=== PATIENT | male | born 1980 ===

== ENCOUNTER 2020-10-09 21:17 | Emergency (ER) | payer OTHER, MEDICARE ==
[2020-10-09 21:32] VITALS: RESP 18; TEMP 98
[2020-10-09] MEDS ORDERED: SODIUM CHLORIDE 0.9% 1,000 ML IV STA (21:43)
--- NOTE | 2020-10-09 21:45 | ED ---
General Adult HPI - General Chief complaint: Seizure Stated complaint: Seizure Time Seen by Provider: 10/09/20 21:31 Source: patient, EMS Mode of arrival: EMS Limitations: no limitations - History of Present Illness Initial comments: Dictation was produced using App [employer] dictation software. please excuse any grammatical, word or spelling errors. This patient was cared for during a federal and state declared state of emergency secondary to Covid 19 Chief Complaint: 40-year-old male past medical history of seizure disorder, autism, cerebral palsy presents with generalized weakness and increased frequency of seizures History of Present Illness: Patient is a 40-year-old male who has past medical history of seizure disorder, autism cerebral palsy. Patient takes Lamictal on a regular basis for seizure control. The last 3-4 days she's been having increased weakness and increased frequency of seizures. Patient was at a residential where there is staff that also take care of him. States he takes limits of daily but does not know what his exact dosing is. Patient's primary by EMS. According to EMS who received report from residential staff and Jose he is been seemingly more weak than usual. Patient states that his legs feel weak. He has been taking his medications like he is supposed to. He has no pain complaints. Denies any shortness of breath. No respiratory symptoms. He believes that he has seizures of unclear whether these episodes were witnessed. He has been having symptoms of more recently were then he would not remember what exactly happened. She had several of these episodes over the last 4 days. The ROS documented in this emergency department record has been reviewed and confirmed by me. Those systems with pertinent positive or negative responses have been documented in the HPI. All other systems are other negative and/or noncontributory. PHYSICAL EXAM: General Impression: Alert and oriented x3, not in acute distress HEENT: Normocephalic atraumatic, extra-ocular movements intact, pupils equal and reactive to light bilaterally, mucous membranes moist. Cardiovascular: Heart regular rate and rhythm Chest: Able to complete full sentences, no retractions, no tachypnea Abdomen: abdomen soft, non-tender, non-distended, no organomegaly Musculoskeletal: Pulses present and equal in all extremities, no peripheral edema Motor: no focal deficits noted Neurological: CN II-XII grossly intact, no focal motor or sensory deficits noted Skin: Intact with no visualized rashes Psych: Normal affect and mood ED course: 40-year-old male with past medical history of seizure disorder, autism with cerebral palsy presents with worsening weakness and concern for increased frequency of seizures. Vital signs upon arrival shows heart rate of 121, rest of vital signs within acceptable limits. Laboratory evaluation obtained. CBC shows macrocytosis of 113.9. Rest of labs within acceptable limits. Metabolic panel is negative. Electrolytes are normal. Computed tomography scan of the brain shows no acute processes. Patient reevaluated at bedside at 11:05 PM with stable medical condition. Patient be administered intravenous fluids observed in emergency department and if no acute issues arise be discharge back to residential with follow-up to his neurologist Dr. Oates. EKG interpretation: Ventricular rate 112, sinus tachycardia, DC interval 112, QRS 94, QTC 633. No DC prolongation, no QTC prolongation, no ST or T-wave changes noted. Overall, this EKG is unremarkable - Related Data Allergies Allergy/AdvReac Type Severity Reaction Status Date / Time Penicillins Allergy Anaphylaxis Verified 10/09/20 21:32 Review of Systems ROS Statement: Those systems with pertinent positive or pertinent negative responses have been documented in the HPI. ROS Other: All systems not noted in ROS Statement are negative. Past Medical History Past Medical History: Seizure Disorder Additional Past Medical History / Comment(s): Cerebral palsy, autism History of Any Multi-Drug Resistant Organisms: None Reported Past Surgical History: No Surgical Hx Reported Past Psychological History: Anxiety Smoking Status: Never smoker Past Alcohol Use History: None Reported Past Drug Use History: None Reported General Exam Limitations: no limitations Course Vital Signs 10/09/20 10/09/20 10/10/20 21:27 23:00 00:38 Temperature 98.0 F Pulse Rate 121 H 114 H 103 H Respiratory 18 18 18 Rate Blood Pressure 147/87 147/97 O2 Sat by Pulse 100 100 Oximetry Medical Decision Making - Lab Data Result diagrams: 10/09/20 21:55 10/09/20 21:54 Lab Results 10/09/20 10/09/20 10/09/20 Range/Units 21:54 21:54 21:55 WBC 5.7 (3.8-10.6) k/uL RBC 3.90 L (4.30-5.90) m/uL Hgb 13.6 (13.0-17.5) gm/dL Hct 44.4 (39.0-53.0) % MCV 113.9 H (80.0-100.0) fL MCH 34.9 (25.0-35.0) pg MCHC 30.6 L (31.0-37.0) g/dL RDW 16.9 H (11.5-15.5) % Plt Count 268 (150-450) k/uL MPV 7.8 Neutrophils % 80 % Lymphocytes % 16 % Monocytes % 2 % Eosinophils % 1 % Basophils % 0 % Neutrophils # 4.5 (1.3-7.7) k/uL Lymphocytes # 0.9 L (1.0-4.8) k/uL Monocytes # 0.1 (0-1.0) k/uL Eosinophils # 0.1 (0-0.7) k/uL Basophils # 0.0 (0-0.2) k/uL Manual Slide Review Performed Anisocytosis Slight Anisocytosis (manual) Present Macrocytosis Marked A Target Cells Present Sodium 140 (137-145) mmol/L Potassium 4.0 (3.5-5.1) mmol/L Chloride 100 (98-107) mmol/L Carbon Dioxide 34 H (22-30) mmol/L Anion Gap 6 mmol/L BUN 9 (9-20) mg/dL Creatinine 0.92 (0.66-1.25) mg/dL Est GFR (CKD-EPI)AfAm >90 (>60 ml/min/1.73 sqM) Est GFR (CKD-EPI)NonAf >90 (>60 ml/min/1.73 sqM) Glucose 159 H (74-99) mg/dL Calcium 9.5 (8.4-10.2) mg/dL Magnesium 2.1 (1.6-2.3) mg/dL Influenza Type A (PCR) Not Detected (Not Detectd) Influenza Type B (PCR) Not Detected (Not Detectd) RSV (PCR) Not Detected (Not Detectd) SARS-CoV-2 (PCR) Not Detected (Not Detectd) Disposition Clinical Impression: Weakness Disposition: HOME SELF-CARE Instructions (If sedation given, give patient instructions): Recurrent Seizures in Adults (ED) Additional Instructions: Follow-up with neurologist and primary care physician for outpatient management of weakness and seizures Is patient prescribed a controlled substance at d/c from ED?: No Referrals: None,Stated [Primary Care Provider] - 1-2 days Time of Disposition: 07:08
[2020-10-09 22:30] LABS: African American GFR (CKD) >90 (>60 ml/min/1.73 sqM); Anion Gap 6 mmol/L; Blood Urea Nitrogen 9 mg/dL (9-20); Calcium 9.5 mg/dL (8.4-10.2); Carbon Dioxide 34 mmol/L (22-30); Chloride 100 mmol/L (98-107); Glucose 159 mg/dL (74-99); Magnesium 2.1 mg/dL (1.6-2.3); Non-African American GFR(CKD) >90 (>60 ml/min/1.73 sqM); Sodium 140 mmol/L (137-145)
[2020-10-09 22:32] LABS: Anisocytosis Slight; Basophils % (A) 0 %; Eosinophils # (A) 0.1 k/uL (0-0.7); Eosinophils % (A) 1 %; HCT 44.4 % (39.0-53.0); HGB 13.6 gm/dL (13.0-17.5); Lymphocytes # (A) 0.9 k/uL (1.0-4.8); Lymphocytes % (A) 16 %; MCH 34.9 pg (25.0-35.0); MCHC 30.6 g/dL (31.0-37.0); MCV 113.9 fL (80.0-100.0); Macrocytosis Marked; Mean Platelet Volume 7.8; Monocytes # (A) 0.1 k/uL (0-1.0); Monocytes % (A) 2 %; Neutrophils # (A) 4.5 k/uL (1.3-7.7); Neutrophils % (A) 80 %; Platelet Count 268 k/uL (150-450); RDW 16.9 % (11.5-15.5); WBC 5.7 k/uL (3.8-10.6)
--- NOTE | 2020-10-09 22:38 | CT ---
EXAMINATION TYPE: CT brain wo con DATE OF EXAM: 10/09/2020 COMPARISON: None HISTORY: Seizures, head trauma CT DLP: 1099.4 mGycm Automated exposure control for dose reduction was used. There is slight enlargement of the left lateral ventricle compared to the right. There is no mass eff ect nor midline shift. There is no sign of intracranial hemorrhage. The calvarium is intact. Skull ba se is intact. There is normal aeration of the mastoid sinuses. IMPRESSION: Asymmetric larger left lateral ventricle without significant atrophy. This could be developmental. No acute intracranial abnormality.
[2020-10-09 22:49] LABS: Anisocytosis (M) Present; Target Cells Present
[2020-10-10 00:39] VITALS: BP 147/97; PULSE 103
== END 2020-10-10 01:28 | disposition home or self-care (01) ==
LOC: EC 21:17
DX: R53.1 Weakness (principal); G40.909 Epilepsy, unspecified, not intractable, without status epilepticus
CPT/HCPCS: 36415; 70450; 80048; 83735; 85025; 87636; 93005; 96360; 99285

== ENCOUNTER 2021-07-21 16:15 | Emergency (ER) | payer MEDICARE, OTHER ==
[2021-07-21 16:24] VITALS: RESP 18; TEMP 98.4
[2021-07-21 17:17] LABS: Anisocytosis Marked; Basophils % (A) 1 %; Eosinophils # (A) 0.2 k/uL (0-0.7); Eosinophils % (A) 4 %; HCT 32.4 % (39.0-53.0); HGB 10.1 gm/dL (13.0-17.5); Hypochromasia Moderate; Lymphocytes # (A) 1.6 k/uL (1.0-4.8); Lymphocytes % (A) 35 %; MCH 30.1 pg (25.0-35.0); MCHC 31.2 g/dL (31.0-37.0); MCV 96.6 fL (80.0-100.0); Macrocytosis Moderate; Mean Platelet Volume 8.1; Microcytosis Slight; Monocytes % (A) 1 %; Neutrophils # (A) 2.7 k/uL (1.3-7.7); Neutrophils % (A) 58 %; Platelet Count 334 k/uL (150-450); RBC 3.35 m/uL (4.30-5.90); WBC 4.7 k/uL (3.8-10.6)
[2021-07-21 17:24] LABS: RDW 27.2 % (11.5-15.5)
[2021-07-21 17:28] LABS: ALT 68 U/L (4-49); AST 56 U/L (17-59); African American GFR (CKD) >90 (>60 ml/min/1.73 sqM); Albumin 3.7 g/dL (3.5-5.0); Alkaline Phosphatase 83 U/L (38-126); Anion Gap 7 mmol/L; Blood Urea Nitrogen 15 mg/dL (9-20); Calcium 8.5 mg/dL (8.4-10.2); Carbon Dioxide 28 mmol/L (22-30); Chloride 104 mmol/L (98-107); Glucose 118 mg/dL (74-99); Non-African American GFR(CKD) >90 (>60 ml/min/1.73 sqM); Potassium 3.9 mmol/L (3.5-5.1); Sodium 139 mmol/L (137-145); Total Bilirubin 0.5 mg/dL (0.2-1.3); Total Protein 6.6 g/dL (6.3-8.2)
[2021-07-21 17:34] LABS: Ovalocytes Present; Poikilocytosis (M) Present; Polychromasia Present
[2021-07-21] MEDS ORDERED: carBAMazepine 300 MG CPMP.12HR PO STA (17:49)
--- NOTE | 2021-07-21 18:20 | ED ---
General Adult HPI - General Chief complaint: Seizure Stated complaint: seizures Time Seen by Provider: 07/21/21 16:27 Source: patient, EMS Mode of arrival: EMS - History of Present Illness Initial comments: Patient is a 40-year-old male past medical history of cerebral palsy, seizure disorder presents emergency department after he had 2 seizures. Patient [facility] at a prison. He had an appointment with his neurologist earlier today. He had been taken off of his Lamictal, his last dose which was yesterday and was to be switched to carbamazepine today. Patient left the doctor's office and at his facility ended up having 2 seizures that only lasted a few seconds. He denies that he injured himself today however yesterday did sustain a fall with head injury. He denies any pain. No nausea or vomiting. No visual changes. No other alleviating, precipitating or modifying factors - Related Data Home Medications Medication Instructions Recorded Confirmed Albuterol Sulfate [Ventolin HFA] 1 - 2 puff INHALATION RT-QID PRN 07/21/21 07/21/21 Baclofen [Lioresal] 20 mg PO TID PRN 07/21/21 07/21/21 Dextroamphetamine/Amphetamine 30 mg PO DAILY 07/21/21 07/21/21 [Adderall Xr] Levothyroxine Sodium [Synthroid] 50 mcg PO DAILY 07/21/21 07/21/21 OXcarbazepine [Oxtellar Xr] 1,200 mg PO DAILY 07/21/21 07/21/21 Sertraline HCl [Zoloft] 150 mg PO DAILY 07/21/21 07/21/21 carBAMazepine [TEGretol XR] 200 mg PO BID 07/21/21 07/21/21 clonazePAM [KlonoPIN] 1 mg PO DAILY PRN 07/21/21 07/21/21 Allergies Allergy/AdvReac Type Severity Reaction Status Date / Time Penicillins Allergy Anaphylaxis Verified 07/21/21 19:23 Review of Systems ROS Statement: Those systems with pertinent positive or pertinent negative responses have been documented in the HPI. ROS Other: All systems not noted in ROS Statement are negative. Past Medical History Past Medical History: Seizure Disorder Additional Past Medical History / Comment(s): Cerebral palsy, autism History of Any Multi-Drug Resistant Organisms: None Reported Past Surgical History: No Surgical Hx Reported Past Psychological History: Anxiety, Depression Smoking Status: Never smoker Past Alcohol Use History: None Reported Past Drug Use History: None Reported General Exam General appearance: alert, in no apparent distress Head exam: Present: atraumatic Eye exam: Present: normal appearance, PERRL, EOMI. Absent: scleral icterus, conjunctival injection, periorbital swelling ENT exam: Present: normal exam, mucous membranes moist Neck exam: Present: normal inspection. Absent: tenderness, meningismus, lymphadenopathy Respiratory exam: Present: normal lung sounds bilaterally. Absent: respiratory distress, wheezes, rales, rhonchi, stridor Cardiovascular Exam: Present: regular rate, normal rhythm, normal heart sounds. Absent: systolic murmur, diastolic murmur, rubs, gallop, clicks GI/Abdominal exam: Present: soft, normal bowel sounds. Absent: distended, tenderness, guarding, rebound, rigid Extremities exam: Present: normal capillary refill, other (contractions upper extremities, muscle atrophy lower extremities). Absent: tenderness, pedal edema, joint swelling, calf tenderness Back exam: Present: normal inspection Neurological exam: Present: alert, oriented X3, CN II-XII intact Psychiatric exam: Present: normal affect, normal mood Skin exam: Present: warm, dry, intact, normal color. Absent: rash Course Vital Signs 07/21/21 07/21/21 16:19 18:31 Temperature 98.4 F Pulse Rate 100 101 H Respiratory 18 18 Rate Blood Pressure 149/102 125/92 O2 Sat by Pulse 96 98 Oximetry EKG Findings - EKG Comments: EKG Findings:: EKG demonstrates sinus rhythm with a rate of 98. NH interval 115. QRS 80. QTC of 397. No acute ST segment elevations or depressions concerning for ischemic changes Medical Decision Making - Medical Decision Making On arrival I did review the patient's paperwork from his doctor's office. He sees Dr. Eloy Dueñas - [phone]. Reports show that the patient is supposed to take up carbamazepine 200 mg twice a day. Patient reports that his pharmacy will not have the medication until tomorrow. Laboratory studies were conducted. Patient went for a CT of his brain because of his injury. Patient given a loading dose of carbamazepine 600 mg after I did speak with his neurologist. CT does demonstrate concerning signs for subluxation of C1 on C2. Because of this Dr. Legacy did recommend that I repeat his CT with the patient's head straight. This does continue to demonstrate a subluxation. Because of this radiology finding I did call and speak with Dr. Goodman paula who is the orthopedic spine on consult. Patient has no concerning clinical signs for neck injury. Patient is able to look in all directions without any pain. Patient is adamant that he does not have a neck injury. Dr. Starks's and feels that the patient's is stable for discharge if no pain on physical exam. He she'll be discharged back to his facility. Instructed to follow up with his neurologist for todays seizure activity. Return for any worsening symptoms - Lab Data Result diagrams: 07/21/21 17:15 07/21/21 17:15 Lab Results 07/21/21 07/21/21 Range/Units 17:15 17:15 WBC 4.7 (3.8-10.6) k/uL RBC 3.35 L (4.30-5.90) m/uL Hgb 10.1 L (13.0-17.5) gm/dL Hct 32.4 L (39.0-53.0) % MCV 96.6 (80.0-100.0) fL MCH 30.1 (25.0-35.0) pg MCHC 31.2 (31.0-37.0) g/dL RDW 27.2 H (11.5-15.5) % Plt Count 334 (150-450) k/uL MPV 8.1 Neutrophils % 58 % Lymphocytes % 35 % Monocytes % 1 % Eosinophils % 4 % Basophils % 1 % Neutrophils # 2.7 (1.3-7.7) k/uL Lymphocytes # 1.6 (1.0-4.8) k/uL Monocytes # 0.0 (0-1.0) k/uL Eosinophils # 0.2 (0-0.7) k/uL Basophils # 0.0 (0-0.2) k/uL Polychromasia Present Hypochromasia Moderate Poikilocytosis (manual Present Anisocytosis Marked Microcytosis Slight Macrocytosis Moderate Ovalocytes Present Sodium 139 (137-145) mmol/L Potassium 3.9 (3.5-5.1) mmol/L Chloride 104 (98-107) mmol/L Carbon Dioxide 28 (22-30) mmol/L Anion Gap 7 mmol/L BUN 15 (9-20) mg/dL Creatinine 0.86 (0.66-1.25) mg/dL Est GFR (CKD-EPI)AfAm >90 (>60 ml/min/1.73 sqM) Est GFR (CKD-EPI)NonAf >90 (>60 ml/min/1.73 sqM) Glucose 118 H (74-99) mg/dL Calcium 8.5 (8.4-10.2) mg/dL Magnesium 2.0 (1.6-2.3) mg/dL Total Bilirubin 0.5 (0.2-1.3) mg/dL AST 56 (17-59) U/L ALT 68 H (4-49) U/L Alkaline Phosphatase 83 (38-126) U/L Total Protein 6.6 (6.3-8.2) g/dL Albumin 3.7 (3.5-5.0) g/dL Disposition Clinical Impression: Breakthrough seizure Disposition: HOME SELF-CARE Condition: Stable Instructions (If sedation given, give patient instructions): Seizure/Epilepsy Discharge Instructions & Follow-Up Additional Instructions: Start taking the carbamazepine tomorrow as directed. Follow up with your neurologist. I recommend they add on an MRI of your cervical spine to your brain MRI. Return for any new or worsening symptoms. Is patient prescribed a controlled substance at d/c from ED?: No Referrals: Bernardino Guillermo MD [Primary Care Provider] - 1-2 days Time of Disposition: 20:24
[2021-07-21 18:33] VITALS: BP 125/92; PULSE 101
--- NOTE | 2021-07-21 18:48 | CT ---
EXAMINATION TYPE: CT brain cspine wo con CT DLP: 1267.7 mGycm, Automated exposure control for dose reduction was used. DATE OF EXAM: 07/21/2021 6:22 PM COMPARISON: None.. CLINICAL INDICATION:Male, 40 years old with history of seizure, fall head injury; Prior head scan, se izure, fall, head injury TECHNIQUE: Brain: Multiple axial CT images of the brain were obtained without IV contrast. Cspine: Axial CT images from the skull base to the inferior aspect of T2 we obtained without intraven ous contrast. Coronal and sagittal reformatted images were also reviewed. FINDINGS: Brain: Extra-axial spaces: No abnormal extra-axial fluid collections. Ventricular system: Within normal limits Cerebral parenchyma: No acute intraparenchymal hemorrhage or mass effect. The cool-white junction is well differentiated. Cerebellum: Unremarkable. Mass effect: No evidence of midline shift. Intracranial vasculature: unremarkable Soft tissues: Normal. Calvarium/osseous structures: No depressed skull fracture. Paranasal sinuses and mastoid air cells: Clear. Visualized orbits: Orbital contents are intact. Cervical spine: Fracture: None. Osseous structures: Multilevel degenerative disc disease changes with endplate spurring and disc oste ophyte complex's. Vertebral alignment: Within normal limits. Spinal canal/Neural Foramina: Patient is rotated, there appears to be anterior subluxation of left C1 facet on C2. Mild narrowing of the spinous C1 secondary to the posterior arch displaced anteriorly. No evidence of significant neural foramina narrowing. Neck soft tissues: Prevertebral soft tissues are within normal limits. Other: The airway is patent. The lung apices are clear. Findings communicated to Dr. Anu Mitchell DO on 07/21/2021 6:[address] Leo Chacon. IMPRESSION: 1. No acute intracranial process. 2. Anterior subluxed C1 left facet on C2 and anterior posterior archof C1 which results in mild spina l canal stenosis. This could be secondary to patient position, consider repeat CT C-spine with the he ad looking straight a head. 3. Mild multilevel degenerative disc disease.
--- NOTE | 2021-07-21 19:46 | CT ---
EXAMINATION TYPE: CT cervical spine wo con CT DLP: 289.1 mGycm, Automated exposure control for dose reduction was used. DATE OF EXAM: 07/21/2021 7:18 PM COMPARISON: CT C-spine same day. CLINICAL INDICATION:Male, 40 years old with history of abn neck ct, malposition vs other, Abn nect CT , malposition vs other TECHNIQUE: Axial CT images from the skull base to the inferior aspect of T2 we obtained without intra venous contrast. Coronal and sagittal reformatted images were also reviewed. FINDINGS: Fracture: None. Osseous structures: Previous findings are confirmed, there is anterior subluxation of the C1 facets o n C2, left greater than right. This results in the posterior arch anteriorly displaced with mild spin al canal stenosis. There is gapping of the atlantodental interval measuring 5 mm. Vertebral alignment: Within normal limits. Spinal canal/Neural Foramina: No evidence of significant spinal canal narrowing. No evidence of signi ficant neural foramina narrowing. Neck soft tissues: Prevertebral soft tissues are within normal limits. Other: The airway is patent. The lung apices are clear. IMPRESSION: 1. Subluxed C1 lateral facets on C2 is confirmed, left greater then right. Associated increased atlan todental interval resulting in mild spinal canal stenosis. 2. No evidence of cervical spine fracture.
== END 2021-07-21 21:51 | disposition home or self-care (01) ==
LOC: EC 16:15
DX: R56.9 Unspecified convulsions (principal); Z88.0 Allergy status to penicillin
CPT/HCPCS: 36415; 70450; 72125; 80053; 83735; 85025; 93005; 99285

== ENCOUNTER 2021-10-04 15:08 | Observation (INO) | payer MEDICARE, OTHER ==
[2021-10-04] MEDS ORDERED: ACETAMINOPHEN TAB 325 MG TAB PO STA (15:31)
--- NOTE | 2021-10-04 15:35 | ED ---
Seizure HPI - General Chief Complaint: Seizure Stated Complaint: Seizure Time Seen by Provider: 10/04/21 15:19 Source: EMS Mode of arrival: EMS Limitations: physical limitation - History of Present Illness Initial Comments: Patient is a 41-year-old male with past medical history of seizure disorder, autism disorder, cerebral palsy who presents to the emergency department for evaluation of seizure. Patient states he had a seizure at his living facility today around 2 PM. He states the seizure was unwitnessed therefore unaware how long it lasted. Patient states his last memory before the seizure was lying on the couch and states he was found on the couch after the seizure. He is adamant that he did not fall off the couch. Patient denies blurry vision, double vision, nausea, and vomiting since the seizure. Patient currently endorses a headache. He denies chest pain shortness of breath. He has no other concerns at this time. - Related Data Home Medications Medication Instructions Recorded Confirmed Albuterol Sulfate [Ventolin HFA] 1 - 2 puff INHALATION RT-QID PRN 07/21/21 07/21/21 Baclofen [Lioresal] 20 mg PO TID PRN 07/21/21 07/21/21 Dextroamphetamine/Amphetamine 30 mg PO DAILY 07/21/21 07/21/21 [Adderall Xr] Levothyroxine Sodium [Synthroid] 50 mcg PO DAILY 07/21/21 07/21/21 OXcarbazepine [Oxtellar Xr] 1,200 mg PO DAILY 07/21/21 07/21/21 Sertraline HCl [Zoloft] 150 mg PO DAILY 07/21/21 07/21/21 carBAMazepine [TEGretol XR] 200 mg PO BID 07/21/21 07/21/21 clonazePAM [KlonoPIN] 1 mg PO DAILY PRN 07/21/21 07/21/21 Allergies Allergy/AdvReac Type Severity Reaction Status Date / Time Penicillins Allergy Anaphylaxis Verified 07/21/21 19:23 Review of Systems ROS Statement: Those systems with pertinent positive or pertinent negative responses have been documented in the HPI. ROS Other: All systems not noted in ROS Statement are negative. Past Medical History Past Medical History: Seizure Disorder Additional Past Medical History / Comment(s): Cerebral palsy, autism History of Any Multi-Drug Resistant Organisms: None Reported Past Surgical History: No Surgical Hx Reported Past Psychological History: Anxiety, Depression Smoking Status: Never smoker Past Alcohol Use History: None Reported Past Drug Use History: None Reported General Exam Limitations: physical limitation General appearance: alert, in no apparent distress Head exam: Present: atraumatic, normocephalic, normal inspection Eye exam: Present: normal appearance, PERRL, EOMI, other (Patient unable to open his right eyelids on his own. He states this typically happens post ictal state). Absent: scleral icterus, conjunctival injection, periorbital swelling ENT exam: Present: normal oropharynx, other Neck exam: Present: normal inspection, full ROM. Absent: tenderness Respiratory exam: Present: normal lung sounds bilaterally. Absent: respiratory distress, wheezes, rales, rhonchi, stridor Cardiovascular Exam: Present: regular rate, normal rhythm, normal heart sounds. Absent: systolic murmur, diastolic murmur, rubs, gallop, clicks GI/Abdominal exam: Present: soft, distended, normal bowel sounds. Absent: tenderness, guarding, rebound, rigid Neurological exam: Present: alert, CN II-XII intact. Absent: oriented X3 (Oriented 1) Psychiatric exam: Present: normal affect, normal mood Skin exam: Present: warm, dry, intact, normal color. Absent: rash Course Vital Signs 10/04/21 10/04/21 15:12 18:23 Temperature 97.9 F 98.5 F Pulse Rate 84 91 Respiratory 18 24 Rate Blood Pressure 129/90 117/70 O2 Sat by Pulse 99 99 Oximetry Medical Decision Making - Medical Decision Making This is a 41-year-old male who presents for evaluation of seizure. Thorough history and examination were performed. Patient is hemodynamically stable. Patient is alert and oriented 1 but does answer my questions and follows commands appropriately. Unsure if this is post ictal state or baseline. PERRL however patient is unable to open his right eyelid on his own. He states this typically happens in his post ictal state. The fall was unwitnessed. Patient was found on the couch. It is uncertain if patient experiences one of multiple seizures. Patient endorses a headache. No visual symptoms, nausea, or vomiting. The abdomen is moderately distended although patient denies abdominal pain. No tenderness. He states his last bowel movement was today which was normal, nonbloody. Laboratory studies were obtained. Patient has normocytic normochromic anemia with hemoglobin at 10.1, consistent with his last visit. Tegretol is in therapeutic range. On reevaluation patient is A&O x 1. He states he is very tired. He denies abdominal pain however KUB x-ray reveals dilated loops of gas-filled bowel in the mid abdomen and could be enlarged cecum. A developing cecal or sigmoid volvulus is possible. Because patient is a questionable historian acute abdominal process cannot be ruled out. CT of the abdomen and pelvis with contrast was obtained which showed large bowel ileus with possible rectal stenosis or stricture. Mechanical bowel obstruction cannot be excluded. I did perform a rectal sweep and no palpable strictures or narrowing was noted. Case discussed with Dr. Hernadez. Patient will be admitted to his service for further evaluation and management. Results discussed with patient who verbalizes understanding and agreement with this plan. Dr. Harrison is my attending. - Lab Data Result diagrams: 10/04/21 16:07 10/04/21 16:07 Lab Results 10/04/21 10/04/21 Range/Units 16:07 16:07 WBC 6.1 (3.8-10.6) k/uL RBC 3.85 L (4.30-5.90) m/uL Hgb 10.1 L (13.0-17.5) gm/dL Hct 33.3 L (39.0-53.0) % MCV 86.5 (80.0-100.0) fL MCH 26.1 (25.0-35.0) pg MCHC 30.2 L (31.0-37.0) g/dL RDW 23.2 H (11.5-15.5) % Plt Count 363 (150-450) k/uL MPV 9.2 Neutrophils % 80 % Lymphocytes % 11 % Monocytes % 5 % Eosinophils % 2 % Basophils % 0 % Neutrophils # 4.9 (1.3-7.7) k/uL Lymphocytes # 0.7 L (1.0-4.8) k/uL Monocytes # 0.3 (0-1.0) k/uL Eosinophils # 0.1 (0-0.7) k/uL Basophils # 0.0 (0-0.2) k/uL Hypochromasia Marked Poikilocytosis Slight Anisocytosis Moderate Microcytosis Slight Sodium 135 L (137-145) mmol/L Potassium 3.8 (3.5-5.1) mmol/L Chloride 106 (98-107) mmol/L Carbon Dioxide 26 (22-30) mmol/L Anion Gap 3 mmol/L BUN 16 (9-20) mg/dL Creatinine 0.83 (0.66-1.25) mg/dL Est GFR (CKD-EPI)AfAm >90 (>60 ml/min/1.73 sqM) Est GFR (CKD-EPI)NonAf >90 (>60 ml/min/1.73 sqM) Glucose 110 H (74-99) mg/dL Calcium 8.2 L (8.4-10.2) mg/dL Magnesium 1.9 (1.6-2.3) mg/dL Total Bilirubin 0.3 (0.2-1.3) mg/dL AST 45 (17-59) U/L ALT 57 H (4-49) U/L Alkaline Phosphatase 113 (38-126) U/L Total Protein 7.1 (6.3-8.2) g/dL Albumin 4.1 (3.5-5.0) g/dL Carbamazepine 9.1 ug/mL - EKG Data EKG Comments: EKG taken at 16:21 Sinus rhythm, voltage criteria for LVH Ventricular rate 86 Purulent 138 QRS duration 76 QTC 409 Disposition Clinical Impression: Ileus, Abdominal distention, Seizure Disposition: ADMITTED IP TO THIS [facility] Condition: Fair Referrals: Bernardino Guillermo MD [Primary Care Provider] - 1-2 days Decision Time: 19:18
[2021-10-04 16:24] LABS: Anisocytosis Moderate; Basophils % (A) 0 %; Eosinophils # (A) 0.1 k/uL (0-0.7); Eosinophils % (A) 2 %; HCT 33.3 % (39.0-53.0); HGB 10.1 gm/dL (13.0-17.5); Hypochromasia Marked; Lymphocytes # (A) 0.7 k/uL (1.0-4.8); Lymphocytes % (A) 11 %; MCH 26.1 pg (25.0-35.0); MCHC 30.2 g/dL (31.0-37.0); MCV 86.5 fL (80.0-100.0); Mean Platelet Volume 9.2; Microcytosis Slight; Monocytes # (A) 0.3 k/uL (0-1.0); Monocytes % (A) 5 %; Neutrophils # (A) 4.9 k/uL (1.3-7.7); Neutrophils % (A) 80 %; Platelet Count 363 k/uL (150-450); Poikilocytosis Slight; RBC 3.85 m/uL (4.30-5.90); RDW 23.2 % (11.5-15.5); WBC 6.1 k/uL (3.8-10.6)
[2021-10-04 16:35] LABS: ALT 57 U/L (4-49); AST 45 U/L (17-59); African American GFR (CKD) >90 (>60 ml/min/1.73 sqM); Albumin 4.1 g/dL (3.5-5.0); Alkaline Phosphatase 113 U/L (38-126); Anion Gap 3 mmol/L; Blood Urea Nitrogen 16 mg/dL (9-20); Calcium 8.2 mg/dL (8.4-10.2); Carbamazepine (Tegretol) 9.1 ug/mL; Carbon Dioxide 26 mmol/L (22-30); Chloride 106 mmol/L (98-107); Glucose 110 mg/dL (74-99); Magnesium 1.9 mg/dL (1.6-2.3); Non-African American GFR(CKD) >90 (>60 ml/min/1.73 sqM); Potassium 3.8 mmol/L (3.5-5.1); Sodium 135 mmol/L (137-145); Total Bilirubin 0.3 mg/dL (0.2-1.3); Total Protein 7.1 g/dL (6.3-8.2)
--- NOTE | 2021-10-04 17:13 | XR ---
EXAMINATION TYPE: XR KUB DATE OF EXAM: 10/04/2021 COMPARISON: NONE HISTORY: Abdominal pain TECHNIQUE: Single view FINDINGS: There is some gaseous distention of the large bowel. No free air. Lung bases are clear. The re are no pathologic calcifications over the kidneys. IMPRESSION: There is dilated loop of gas-filled bowel in the midabdomen and could be enlarged cecum. A developing cecal or sigmoid volvulus is possible. No free air.
--- NOTE | 2021-10-04 18:12 | CT ---
EXAMINATION TYPE: CT abdomen pelvis w con DATE OF EXAM: 10/04/2021 COMPARISON: None HISTORY: abdominal pain and distention CT DLP: 526.8 mGycm Automated exposure control for dose reduction was used. CONTRAST: Performed with IV Contrast, patient injected with 100 mL of Isovue 300. Images obtained from the diaphragm to the floor the pelvis with IV contrast. The lung bases are clear of consolidation. There is minimal subsegmental atelectasis. Heart size is n ormal. No pericardial effusion. Liver spleen pancreas appear intact. The bile ducts are not dilated. There is no adrenal mass. Kidneys show satisfactory contrast opacification. There is no hydronephrosi s. There are multiple dilated loops of large bowel. There is dilated gas and fluid-filled large bowel do wn to the rectum. There is also some gaseous distention and mild dilation of the small bowel that marcell sures up to 3.2 cm. No free air. No ascites. I see no intestinal wall thickening. The bony structures are intact. IMPRESSION: Moderately dilated air and fluid-filled large bowel down to the rectum consistent with ileus and diar wolf. Rectal stenosis or stricture is possible. Mechanical bowel obstruction not excluded. Follow-up recommended. There is mild distention also of the distal small bowel probably secondary to the dilate d large bowel.
[2021-10-04] MEDS ORDERED: MAGNESIUM HYDROXIDE 2,400 MG/10 ML CUP PO STA (23:28)
--- NOTE | 2021-10-04 23:58 | P.HPIM ---
History of Present Illness H&P Date: 10/04/21 Patient is a 41-year-old male with a PMH of cerebral palsy, seizure disorder, autism spectrum disorder presented to the emergency room after breakthrough seizure. The patient reports that he was in his usual state of health until about one to 2 PM this afternoon when he believes he had a seizure. He denies any prodromal symptoms and states that he was laying on the couch and subsequently woke up on the couch, unwitnessed. He denies suffering any trauma and reports feeling back to his baseline at the time of interview. The patient reports that he often has seizures, and had been evaluated in the emergency room 2 to 3 months ago also for a seizure. Patient also reports that he has a histo ry of multiple abdominal surgeries as a child, and suffers with chronic constipation. Reports not having a bowel movement over the past 2-3 days. Denied experiencing any abdominal pain. Further denied chest discomfort, shortness of breath, fever, chills, cough, nausea, vomiting. CT abdomen and pelvis in the emergency room revealed dilated large bowel, with obstruction versus stricture not excluded. EKG revealed sinus rhythm at 86 bpm with LVH. Laboratory evaluation was remarkable for hemoglobin of 10.1 (at baseline). Review of systems: Pertinent positives and negatives as discussed in HPI, a complete review of systems was performed and all other systems are negative. Physical examination: General: non toxic, no distress, appears at stated age, normal weight Derm: no unusual rashes/lesions no unusual ecchymoses, warm, dry Head: atraumatic, normocephalic, symmetric Eyes: EOMI, no lid lag, anicteric sclera, pupils equal round reactive to light ENT: Nose and ears atraumatic, no thrush, no pharyngeal erythema Neck: No thyromegaly, no cervical lymphadenopathy, trachea midline, supple Mouth: no lip lesion, mucus membranes moist Cardiovascular: S1S2 reg, no murmur, positive posterior tibial pulse bilateral, no edema, capillary refill less than 2 seconds Lungs: CTA bilateral, no rhonchi, no rales , no accessory muscle use Abdominal: mildly distended, non-tender, multiple post surgical scars noted, no guarding, no appreciable organomegaly, normal bowel sounds Ext: no gross muscle atrophy, muscle strength 5 out of 5 in all 4 extremities grossly, R wrist contracture noted Neuro: CN II-XI grossly intact, light touch intact all 4 extremities, finger to nose within normal limits, Psych: Alert, oriented, appropriate affect Assessment/plan Breakthrough seizure -Carbamazepine levels therapeutic -Patient reports compliance with his antiepileptics at home -Neurology consulted -Seizure precautions Abdominal distention with abnormal computed tomography scan -Suspect symptoms may be due to chronic intermittent constipation -Patient denying abdominal discomfort at this time -Surgery consult -NPO for now DVT prophylaxis -Heparin subq The patient is admitted with an anticipated greater than 2 midnight stay for evaluation of seizure CODE STATUS: Full Code Discussed with: Patient Anticipated discharge date: 2-[address]: Home Past Medical History Past Medical History: Seizure Disorder Additional Past Medical History / Comment(s): Cerebral palsy, autism History of Any Multi-Drug Resistant Organisms: None Reported Past Surgical History: No Surgical Hx Reported Past Psychological History: Anxiety, Depression Smoking Status: Never smoker Past Alcohol Use History: None Reported Past Drug Use History: None Reported Medications and Allergies Home Medications Medication Instructions Recorded Confirmed Type Albuterol Sulfate [Ventolin HFA] 1 - 2 puff INHALATION RT-QID PRN 07/21/21 07/21/21 History Baclofen [Lioresal] 20 mg PO TID PRN 07/21/21 07/21/21 History Dextroamphetamine/Amphetamine 30 mg PO DAILY 07/21/21 07/21/21 History [Adderall Xr] Levothyroxine Sodium [Synthroid] 50 mcg PO DAILY 07/21/21 07/21/21 History OXcarbazepine [Oxtellar Xr] 1,200 mg PO DAILY 07/21/21 07/21/21 History Sertraline HCl [Zoloft] 150 mg PO DAILY 07/21/21 07/21/21 History carBAMazepine [TEGretol XR] 200 mg PO BID 07/21/21 07/21/21 History clonazePAM [KlonoPIN] 1 mg PO DAILY PRN 07/21/21 07/21/21 History Allergies Allergy/AdvReac Type Severity Reaction Status Date / Time Penicillins Allergy Anaphylaxis Verified 10/04/21 19:22 Physical Exam Vitals: Vital Signs Temp Pulse Resp BP Pulse Ox 10/04/21 22:29 75 16 109/68 100 10/04/21 20:00 74 18 114/62 100 10/04/21 18:23 98.5 F 91 24 117/70 99 10/04/21 15:12 97.9 F 84 18 129/90 99 Intake and Output 10/04/21 10/04/21 10/05/21 14:59 22:59 06:59 Other: Weight 63.503 kg Results CBC & Chem 7: 10/04/21 16:07 10/04/21 16:07 Labs: Abnormal Lab Results - Last 24 Hours (Table) 10/04/21 10/04/21 Range/Units 16:07 16:07 RBC 3.85 L (4.30-5.90) m/uL Hgb 10.1 L (13.0-17.5) gm/dL Hct 33.3 L (39.0-53.0) % MCHC 30.2 L (31.0-37.0) g/dL RDW 23.2 H (11.5-15.5) % Lymphocytes # 0.7 L (1.0-4.8) k/uL Sodium 135 L (137-145) mmol/L Glucose 110 H (74-99) mg/dL Calcium 8.2 L (8.4-10.2) mg/dL ALT 57 H (4-49) U/L
[2021-10-05] MEDS: HEPARIN SODIUM,PORCINE/PF 5,000 UNIT/0.5 ML SYRINGE SQ SCH ×3 (02:42→15:16)
[2021-10-05] MEDS ORDERED: LORazepam 2 MG/ML INJ IV PRN (08:21)
--- NOTE | 2021-10-05 08:30 | CT ---
EXAMINATION TYPE: CT brain cspine wo con DATE OF EXAM: 10/05/2021 COMPARISON: CT brain August 09, 2020. CT cervical spine July 21, 2021 HISTORY: seizure and subluxation cervical on prior CT DLP: 1323.1 mGycm. Automated Exposure Control for Dose Reduction was Utilized. TECHNIQUE: CT scan of the head and cervical spine are performed without contrast. FINDINGS: There is no acute intracranial hemorrhage, mass effect, or midline shift identified. The ventricles and sulci are within normal limits in size. Asymmetry to the ventricles is unchanged from prior studies. The globes are intact and the visualized sinuses are clear. Cervical spine is visualized in its entirety from C1 through upper thoracic levels and redemonstrates straightened alignment with grade 1 retrolisthesis C3 on C4, C4 on C5, C5 on C6, and C6 on C7 redemo nstrated. No acute fracture or dislocation. Posterior C1 vertebra indenting posterior spinal canal i s unchanged from prior. Prevertebral soft tissue appears within normal limits. The C1-C2 articulatio n is within normal limits on the coronal images. Vertebral body heights are maintained. Moderate spu rring and disc space narrowing C3-C4 through the C6-C7 levels is redemonstrated. Posterior spur disc complexes efface the anterior thecal sac at these levels on sagittal and axial images similar to prio r. Thyroid gland remains within normal limits. Lung apices show no pneumothorax. IMPRESSION: 1. There is no acute fracture or dislocation evident in the cervical spine. 2. No acute intracranial hemorrhage or midline shift is seen. No significant change from prior studies.
[2021-10-05] MEDS: OXcarbazepine 300 MG TAB PO SCH ×2 (09:50→21:12)
--- NOTE | 2021-10-05 10:37 | P.CNNES ---
History of Present Illness Consult date: 10/05/21 Requesting physician: Kiet Hernadez Reason for Consult: breakthrough seizure History of Present Illness: This is a 41-year-old gentleman with history of cerebral palsy, seizure, autism Spectrum who presented to the emergency department on 10/04/2021 for breakthrough seizure. Seems that the patient was in his usual state yesterday then he felt he had a seizure. He stated that the he didn't have any warning signs prior to the seizure episode and the seizure was a unwitnessed. He denies any trauma to the head and upon present in the hospital he was at baseline. Patient had a hard time describing the seizure but did acknowledge he had urinary incontinence. Denies tongue bite. He lives in an [facility]. He feels he seizures has been more frequent recently but could not tell he how often. Patient is on carbamazepine 200 mg 1 tablet twice a day, oxteller 1200 mg daily, baclofen 20 mg 1 tablet 3 times a day when necessary, Adderall 30 mg daily. He does follow-up with Neurologist over at [facility]. Seems the patient was evaluated in our emergency about 2-3 month ago for seizu re. Patient has chronic constipation. Of note patient stated he has history of seizures since child. He has tried Keppra but stated was allergic to it. Tried Lamictal in past but has side- effects to it but could not tell what. Some of the workup in the hospital consisted of: Initial Vital signs is a blood pressure of 129/90, heart rate of 84, respiratory of 18, temperature of 97.9 Fahrenheit oral pulse ox of 99% room air Initial white blood cell is 6.1 thousand which is within normal limits. Sodium is 135, calcium is 8.2, serum glucose 110 ALT of 57 otherwise rest of Chem-7 pounds unremarkable Carbamazepine level was 9.1 which is considered therapeutic level. Patient had CT of the abdomen which is reported as mildly dilated air and fluid filled large bowel down to the rectum consistent with ileus and diarrhea. Rectal stenosis or stricture is possible. Mechanical bowel obstruction e xcluded. Review of Systems Review of system: The 12 point system was reviewed and apparent positive and negative per HPI. Past Medical History Past Medical History: Seizure Disorder Additional Past Medical History / Comment(s): Cerebral palsy, autism History of Any Multi-Drug Resistant Organisms: None Reported Past Surgical History: No Surgical Hx Reported Past Psychological History: Anxiety, Depression Smoking Status: Never smoker Past Alcohol Use History: None Reported Past Drug Use History: None Reported - Past Family History Father Additional Family Medical History / Comment(s): Father is . He had parkinson's. Mother Additional Family Medical History / Comment(s): Mother is . She had ALS. Medications and Allergies Home Medications Medication Instructions Recorded Confirmed Type Albuterol Sulfate [Ventolin HFA] 2 puff INHALATION RT-Q4H PRN 07/21/21 10/05/21 History Baclofen [Lioresal] 20 mg PO TID 07/21/21 10/05/21 History Levothyroxine Sodium [Synthroid] 50 mcg PO DAILY 07/21/21 10/05/21 History OXcarbazepine [Oxtellar Xr] 1,200 mg PO DAILY 07/21/21 10/05/21 History Sertraline HCl [Zoloft] 150 mg PO DAILY 07/21/21 10/05/21 History clonazePAM [KlonoPIN] 1 mg PO DAILY 07/21/21 10/05/21 History Docusate [Colace] 100 mg PO BID PRN 10/05/21 10/05/21 History Equetro 300mg 300 mg PO BID 10/05/21 10/05/21 History Meclizine [Antivert] 25 mg PO Q8H PRN 10/05/21 10/05/21 History Omeprazole 20 mg PO BID PRN 10/05/21 10/05/21 History Ondansetron [Zofran] 4 mg PO Q8H PRN 10/05/21 10/05/21 History Polyethylene Glycol 3350 [Miralax] 17 gm PO DAILY PRN 10/05/21 10/05/21 History Allergies Allergy/AdvReac Type Severity Reaction Status Date / Time Penicillins Allergy Anaphylaxis Verified 10/05/21 09:18 Physical Examination - Vital Signs Vital Signs: Vital Signs Temp Pulse Resp BP Pulse Ox 10/05/21 06:24 81 16 120/74 98 10/05/21 00:57 98.0 F 83 16 130/78 99 10/04/21 22:29 75 16 109/68 100 10/04/21 20:00 74 18 114/62 100 10/04/21 18:23 98.5 F 91 24 117/70 99 10/04/21 15:12 97.9 F 84 18 129/90 99 Intake and Output 10/04/21 10/05/21 10/05/21 22:59 06:59 14:59 Other: Weight 63.503 kg GENERAL: The patient is lying in bed and is not in acute distress. CHEST: The heart rate is regular rate rhythm. No murmurs to auscultation. LUNG: Clear to auscultation bilaterally no wheezing noted throughout. Not labored breathing. ABDOMEN/GI: Bowel sounds present in all 4 quadrants. No tenderness to palpation throughout. NEUROLOGICAL: Higher mental function: The patient is awake, alert, oriented to self, place and time. Patient is following commands. No aphasia and no neglect. Cranial nerves: The pupils are round, equal and reactive to light and accommodation. Visual russell are full to confrontation throughout. Extraocular movement is intact no nystagmus is noted. Facial sensation is normal to touch throughout. The facial strength is normal throughout. Hearing is normal bilaterally to hand rub. Tongue is midline and moved [id number] without any difficulty. No dysarthria is noted. No tongue bite. Shoulder shrug is normal bilaterally. Motor: Gait is deferred. The strength is 5 over 5 throughout left side while right is has weakness with increase tone (worse over upper than lower and per patient old). Has spasticity over the right wrist. Has atrophy over the entire right side. Cerebellum: Normal finger to nose. Sensation: Sensation is normal to touch throughout. Reflexes (right/left): Bilateral lowers are 3+. 2+ throughout. Plantars is upgoing over the right and mute left. Results - Laboratory Findings CBC and BMP: 10/04/21 16:07 10/04/21 16:07 Abnormal Lab Findings: Abnormal Labs 10/04/21 10/04/21 16:07 16:07 RBC 3.85 L Hgb 10.1 L Hct 33.3 L MCHC 30.2 L RDW 23.2 H Lymphocytes # 0.7 L Sodium 135 L Glucose 110 H Calcium 8.2 L ALT 57 H Assessment and Plan Assessment: Breakthrough seizure (patient had a possible seizure activity at home) and states his seizure has been more frequent. Possible bowel obstruction History of epilepsy since childhood Cerebral palsy with residual weakness and spasticity over right (mostly right upper >lower) History Autism spectrum Plan: Restarted his home antiepilepitic drugs carbamazepine 200 mg 1 tablet twice a day, oxteller 1200 mg daily. Since the patient has been having more frequent seizures, I started him on Vimpat 50mg 1 tab bid. I ordered a CT of the head as well as cervical spine. 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 Ordered Ativan 1 mg IV every 4 hours as needed for seizures Every 4 hours neuro checks On seizure precaution and seizure pads General surgery team was consulted for bowel obstruction We'll defer the rest of medical management to the primary team Upon discharge recommend the patient follow-up with his neurologist (follows-up with someone at [place]) as an outpatient within 1-2 weeks. The plan is discussed with the patient's nurse. Thank you consultation. Tyler Azar M.D. Neuro-hospitalist Time with Patient: Greater than 30
[2021-10-05] MEDS: LACOSAMIDE 50 MG TABLET PO SCH ×2 (11:02→21:12)
--- NOTE | 2021-10-05 13:21 | P.GSCN ---
History of Present Illness Consult date: 10/05/21 History of present illness: CHIEF COMPLAINT: Seizure HISTORY OF PRESENT ILLNESS: This is a 41-year-old male with a known history of seizure disorder, autism and cerebral palsy. He came into the emergency room for evaluation due to a breakthrough seizure. Patient is followed by neurology and his seizure medications have been adjusted. Patient did have a computed to mography scan of the abdomen completed in the ER due to abdominal distention. CAT scan results showed moderately dilated air and fluid-filled large bowel down to the rectum consistent with ileus and diarrhea. Rectal stenosis or stricture is possible. Mechanical bowel obstruction is not excluded. There is mild distention also on the distal small bowel probably secondary to the dilated large bowel. Since patient has been in the ER he did have 2 liquidy bowel movements plus flatus. He denies any abdominal pain. He did receive milk of magnesia in the ER. Patient reports having intestinal surgeries with J-pouch completed during his childhood. Patient denies any fevers chills or sweats. P atient reports that he is feeling hungry and would like to be started on diet. PAST MEDICAL HISTORY: Seizure disorder, autism and cerebral palsy PAST SURGICAL HISTORY: As stated above MEDICATIONS: See list. ALLERGIES: See list. SOCIAL HISTORY: No illicit drug use. REVIEW OF SYSTEMS: CONSTITUTIONAL: Denies fever or chills. HEENT: Denies blurred vision, vision changes, or eye pain. Denies hemoptysis CARDIOVASCULAR: Denies chest pain or pressure. RESPIRATORY: No shortness of breath. GASTROINTESTINAL: See HPI for pertinent findings HEMATOLOGIC: Denies bleeding disorders. GENITOURINARY: Denies any blood in urine or increased urinary frequency. SKIN: Denies pruitis. Denies rash. PHYSICAL EXAM: VITAL SIGNS: Reviewed GENERAL: Well-developed in no acute distress. HEENT: No sclera icterus. Extraocular movements grossly intact. Moist buccal mucosa. Head is atraumatic, normocephalic. No nasal drainage. ABDOMEN: Soft. Nondistended. Nontender. Old abdominal surgical scars noted laterally and horizontal abdomen NEUROLOGIC: Alert and oriented. Cranial nerves II through XII grossly intact. LABORATORY DATA: WBC is 6.1 hemoglobin 10.1 platelets 363 Sodium is 135 potassium is 3.8 creatinine 0.83 Magnesium 1.9 AST 45 ALT 57 alk phos 113 IMAGING: Computed tomography scan abdomen is stated above ASSESSMENT: 1. Abdominal distention improved 2. Ileus 3. Breakthrough seizure followed by neurology PLAN: -Continue conservative management -Start clear liquid diet -Continue supportive care -Seizure management per neurology Thank you for this consultation Physician Bisque Grader note has been reviewed by physician. Signing provider agrees with the documented findings, assessment, and plan of care. Past Medical History Past Medical History: Seizure Disorder Additional Past Medical History / Comment(s): Cerebral palsy, autism History of Any Multi-Drug Resistant Organisms: None Reported Past Surgical History: No Surgical Hx Reported Additional Past Surgical History / Comment(s): Multiple abdominal/intestinal surgeries including an "internal J pouch" and most of large intestine removed as an infant, endoscopy, colonoscopy Past Anesthesia/Blood Transfusion Reactions: No Reported Reaction Past Psychological History: Anxiety, Depression Smoking Status: Never smoker Past Alcohol Use History: None Reported Past Drug Use History: None Reported - Past Family History Father Additional Family Medical History / Comment(s): Father is . He had parkinson's. Mother Additional Family Medical History / Comment(s): Mother is . She had ALS. Medications and Allergies Home Medications Medication Instructions Recorded Confirmed Type Albuterol Sulfate [Ventolin HFA] 2 puff INHALATION RT-Q4H PRN 07/21/21 10/05/21 History Baclofen [Lioresal] 20 mg PO TID 07/21/21 10/05/21 History Levothyroxine Sodium [Synthroid] 50 mcg PO DAILY 07/21/21 10/05/21 History OXcarbazepine [Oxtellar Xr] 1,200 mg PO DAILY 07/21/21 10/05/21 History Sertraline HCl [Zoloft] 150 mg PO DAILY 07/21/21 10/05/21 History clonazePAM [KlonoPIN] 1 mg PO DAILY 07/21/21 10/05/21 History Docusate [Colace] 100 mg PO BID PRN 10/05/21 10/05/21 History Equetro 300mg 300 mg PO BID 10/05/21 10/05/21 History Meclizine [Antivert] 25 mg PO Q8H PRN 10/05/21 10/05/21 History Omeprazole 20 mg PO BID PRN 10/05/21 10/05/21 History Ondansetron [Zofran] 4 mg PO Q8H PRN 10/05/21 10/05/21 History Polyethylene Glycol 3350 [Miralax] 17 gm PO DAILY PRN 10/05/21 10/05/21 History Allergies Allergy/AdvReac Type Severity Reaction Status Date / Time Penicillins Allergy Anaphylaxis Verified 10/05/21 09:18 Surgical - Exam Vital Signs Temp Pulse Resp BP Pulse Ox 97.9 F 84 18 129/90 99 10/04/21 15:12 10/04/21 15:12 10/04/21 15:12 10/04/21 15:12 10/04/21 15:12 Results - Labs 10/04/21 16:07 10/04/21 16:07 Abnormal Lab Results - Last 24 Hours (Table) 10/04/21 10/04/21 Range/Units 16:07 16:07 RBC 3.85 L (4.30-5.90) m/uL Hgb 10.1 L (13.0-17.5) gm/dL Hct 33.3 L (39.0-53.0) % MCHC 30.2 L (31.0-37.0) g/dL RDW 23.2 H (11.5-15.5) % Lymphocytes # 0.7 L (1.0-4.8) k/uL Sodium 135 L (137-145) mmol/L Glucose 110 H (74-99) mg/dL Calcium 8.2 L (8.4-10.2) mg/dL ALT 57 H (4-49) U/L Diabetes panel 10/04/21 Range/Units 16:07 Sodium 135 L (137-145) mmol/L Potassium 3.8 (3.5-5.1) mmol/L Chloride 106 (98-107) mmol/L Carbon Dioxide 26 (22-30) mmol/L BUN 16 (9-20) mg/dL Creatinine 0.83 (0.66-1.25) mg/dL Glucose 110 H (74-99) mg/dL Calcium 8.2 L (8.4-10.2) mg/dL AST 45 (17-59) U/L ALT 57 H (4-49) U/L Alkaline Phosphatase 113 (38-126) U/L Total Protein 7.1 (6.3-8.2) g/dL Albumin 4.1 (3.5-5.0) g/dL Calcium panel 10/04/21 Range/Units 16:07 Calcium 8.2 L (8.4-10.2) mg/dL Albumin 4.1 (3.5-5.0) g/dL Pituitary panel 10/04/21 Range/Units 16:07 Sodium 135 L (137-145) mmol/L Potassium 3.8 (3.5-5.1) mmol/L Chloride 106 (98-107) mmol/L Carbon Dioxide 26 (22-30) mmol/L BUN 16 (9-20) mg/dL Creatinine 0.83 (0.66-1.25) mg/dL Glucose 110 H (74-99) mg/dL Calcium 8.2 L (8.4-10.2) mg/dL Adrenal panel 10/04/21 Range/Units 16:07 Sodium 135 L (137-145) mmol/L Potassium 3.8 (3.5-5.1) mmol/L Chloride 106 (98-107) mmol/L Carbon Dioxide 26 (22-30) mmol/L BUN 16 (9-20) mg/dL Creatinine 0.83 (0.66-1.25) mg/dL Glucose 110 H (74-99) mg/dL Calcium 8.2 L (8.4-10.2) mg/dL Total Bilirubin 0.3 (0.2-1.3) mg/dL AST 45 (17-59) U/L ALT 57 H (4-49) U/L Alkaline Phosphatase 113 (38-126) U/L Total Protein 7.1 (6.3-8.2) g/dL Albumin 4.1 (3.5-5.0) g/dL
--- NOTE | 2021-10-05 21:56 | P.PN ---
Subjective Progress Note Date: 10/05/21 (delayed charting seen at 1515) Principal diagnosis: seizure Patient is a 41-year-old male for history of cerebral palsy, seizure disorder, and autism spectrum disorder who presented to the ER with a breakthrough seizure. In the ER he underwent an extensive evaluation. Vital signs and laboratory analysis for essentially unremarkable for acute change. CT abdomen and pelvis showed dilated large bowel obstruction versus stricture not excluded. Patient was admitted and neurology was consulted. General surgery was consulted. Patient's Vimpat was increased by neurology who recommended outpatient follow-up. He did have a CT head checked which showed no acute pro cess. General surgery recommended starting him on a diet and he did have a bowel movement that was mostly liquid. Patient seen and examined at bedside. He denies any chest pain or shortness of breath. No additional seizures. No abdominal pain at this time. He states he had a bowel movement. General: non toxic, no distress, appears at stated age Derm: warm, dry Head: atraumatic, normocephalic, symmetric Eyes: EOMI, no lid lag, anicteric sclera Mouth: no lip lesion, mucus membranes moist Cardiovascular: S1S2 reg, no murmur, positive posterior tibial pulse bilateral, Lungs: CTA bilateral, no rhonchi, no rales , no accessory muscle use Abdominal: Soft with divots and scarring noted, nontender to palpation, no guarding, no appreciable organomegaly Ext: no gross muscle atrophy, no edema, no contractures Neuro: CN II-XI grossly intact, right wrist contracture Psych: Alert, oriented, appropriate affect Assessment/plan: Breakthrough seizure -Neurology recommendations appreciated -Vimpat was added to his carbamazepine and oxcarbazepine -Right arm contractures -Continue with baclofen and Klonopin Ileus with chronic constipation -Surgery operations appreciated -Continue with clear liquid diet -Reassess in a.m. Hypothyroidism -Continue with Synthroid Likely home in a.m. if no recurrent seizures and continuing to tolerate oral diet -DVT prophylaxis: Heparin Objective - Vital Signs Vital signs: Vital Signs Temp 98.6 F 10/05/21 19:28 Pulse 80 10/05/21 19:28 Resp 15 10/05/21 19:28 BP 121/80 10/05/21 19:28 Pulse Ox 99 10/05/21 19:28 Intake & Output 10/05/21 10/05/2122 06:59 18:59 06:59 Intake Total 1200 Output Total 200 200 Balance 1000 -200 Weight 63.503 kg Intake: Oral 1200 Output: Urine 200 200 Other: Voiding Method Urinal # Bowel Movements 1 - Labs CBC & Chem 7: 10/04/21 16:07 10/04/21 16:07
[2021-10-06] MEDS: HEPARIN SODIUM,PORCINE/PF 5,000 UNIT/0.5 ML SYRINGE SQ SCH ×4 (00:21→23:22)
[2021-10-06] MEDS: LACOSAMIDE 50 MG TABLET PO SCH ×2 (07:43→20:58)
[2021-10-06] MEDS: OXcarbazepine 300 MG TAB PO SCH ×2 (07:43→21:18)
[2021-10-06 09:37] LABS: African American GFR (CKD) >90 (>60 ml/min/1.73 sqM); Anion Gap 11 mmol/L; Blood Urea Nitrogen 3 mg/dL (9-20); Calcium 8.8 mg/dL (8.4-10.2); Carbon Dioxide 22 mmol/L (22-30); Chloride 103 mmol/L (98-107); Glucose 125 mg/dL (74-99); Non-African American GFR(CKD) >90 (>60 ml/min/1.73 sqM); Potassium 3.9 mmol/L (3.5-5.1); Sodium 136 mmol/L (137-145)
[2021-10-06] MEDS: BACLOFEN 10 MG TAB PO SCH ×3 (10:17→20:58)
[2021-10-06] MEDS: LEVOTHYROXINE 50 MCG TAB PO SCH (10:18)
--- NOTE | 2021-10-06 12:20 | P.PN ---
Subjective Progress Note Date: 10/06/21 According to nurse patient has had no further seizures. Patient feels he is doing well. Objective - Vital Signs Vital signs: Vital Signs Temp 98.7 F 10/06/21 08:00 Pulse 78 10/06/21 08:00 Resp 19 10/06/21 08:00 BP 111/68 10/06/21 08:00 Pulse Ox 100 10/06/21 08:00 Intake & Output 10/05/21 10/06/21 10/06/21 18:59 06:59 18:59 Intake Total 1200 600 Output Total 200 200 400 Balance 1000 400 -400 Weight 63.503 kg Intake: Oral 1200 600 Output: Urine 200 200 400 Other: Voiding Method Urinal Urinal # Voids 2 # Bowel Movements 1 1 1 - Exam GENERAL: The patient is lying in bed and is not in acute distress. NEUROLOGICAL: Higher mental function: The patient is awake, alert, oriented to self, place and time. Patient is following commands. No aphasia and no neglect. Cranial nerves: The pupils are round, equal and reactive to light and accommodation. Visual russell are full to confrontation throughout. Extraocular movement is intact no nystagmus is noted. Facial sensation is normal to touch throughout. The facial strength is normal throughout. Hearing is normal bilaterally to hand rub. Tongue is midline and moved [id number] without any difficulty. No dysarthria is noted. No tongue bite. Shoulder shrug is normal bilaterally. Motor: Gait is deferred. The strength is 5 over 5 throughout left side while right is has weakness with increase tone (worse over upper than lower and per patient old). Has spasticity over the right wrist. Has atrophy over the entire right side. Cerebellum: Normal finger to nose. Sensation: Sensation is normal to touch throughout. Reflexes (right/left): Bilateral lowers are 3+. 2+ throughout. Plantars is upgoing over the right and mute left. - Labs CBC & Chem 7: 10/04/21 16:07 10/06/21 08:15 Labs: Abnormal Lab Results - Last 24 Hours (Table) 10/06/21 Range/Units 08:15 Sodium 136 L (137-145) mmol/L BUN 3 L (9-20) mg/dL Glucose 125 H (74-99) mg/dL Assessment and Plan Assessment: Breakthrough seizure (patient had a possible seizure activity at home) and states his seizure has been more frequent. Possible bowel obstruction History of epilepsy since childhood Cerebral palsy with residual weakness and spasticity over right (mostly right upper >lower) History Autism spectrum Plan: Continue his home antiepilepitic drugs carbamazepine 300 mg 1 tablet twice a day (but is on extended form), oxteller 1200 mg daily. Since the patient has been having more frequent seizures, I started him on Vimpat 50mg 1 tab bid during this admission.. CT of the head as well as cervical spine: It is reported as no acute intracranial hemorrhage or midline shift. There is no acute fracture or d islocation evient in the cervical spine. No significant change from prior studies. Routine EEG is cancelled since patient has already known history of seizures, back to baseline and will not exchange mechanic. Ativan 1 mg IV every 4 hours as needed for seizures Every 4 hours neuro checks On seizure precaution and seizure pads General surgery team was consulted for bowel obstruction We'll defer the rest of medical management to the primary team Upon discharge recommend the patient follow-up with his neurologist (follows-up with someone at [facility]) as an outpatient within 1-2 weeks. The plan is discussed with the patient's nurse and primary attending. No further neurological work-up. Patient is clear for discharged from neurological perspective. Please notify neurology team if any further concerns. Dr. Ocampo will provide neurology coverage tomorrow AM then Dr. Martin will start on 10/09/2021. Tyler Azar M.D. Neuro-hospitalist Time with Patient: Less than 30
[2021-10-06] MEDS ORDERED: ACETAMINOPHEN TAB 325 MG TAB PO PRN (12:30)
[2021-10-06] MEDS ORDERED: ALBUTEROL NEBULIZED 2.5 MG/3 ML INHALATION PRN (14:09)
[2021-10-06] MEDS ORDERED: MECLIZINE 25 MG TAB PO PRN (14:09)
[2021-10-06] MEDS ORDERED: ONDANSETRON 4 MG TAB PO PRN (14:09)
[2021-10-06] MEDS ORDERED: PANTOPRAZOLE 40 MG TABLET PO PRN (14:09)
--- NOTE | 2021-10-06 14:19 | P.PN ---
Subjective Progress Note Date: 10/06/21 (delayed hcarting seen at 0930) Principal diagnosis: seizure Patient is a 41-year-old male for history of cerebral palsy, seizure disorder, and autism spectrum disorder who presented to the ER with a breakthrough seizure. In the ER he underwent an extensive evaluation. Vital signs and laboratory analysis for essentially unremarkable for acute change. CT abdomen and pelvis showed dilated large bowel obstruction versus stricture not excluded. Patient was admitted and neurology was consulted. General surgery was consulted. Patient's Vimpat was increased by neurology who recommended outpatient follow-up. He did have a CT head checked which showed no acute pro cess. General surgery recommended starting him on a diet and he did have a bowel movement that was mostly liquid. He did not tolerated a full liquid diet and had nausea. Patient seen and examined at bedside. HHe complains of a headache and a foggy feeling, no chest pain, no shortness of breath, no belly pain. General: non toxic, no distress, appears at stated age Derm: warm, dry Head: atraumatic, normocephalic, symmetric Eyes: EOMI, no lid lag, anicteric sclera Mouth: no lip lesion, mucus membranes moist Cardiovascular: S1S2 reg, no murmur, positive posterior tibial pulse bilateral, Lungs: CTA bilateral, no rhonchi, no rales , no accessory muscle use Abdominal: Soft with divots and scarring noted, nontender to palpation, no guarding, no appreciable organomegaly Ext: no gross muscle atrophy, no edema, no contractures Neuro: CN II-XI grossly intact, right wrist contracture Psych: Alert, oriented, appropriate affect Assessment/plan: Breakthrough seizure -Neurology recommendations appreciated -Vimpat was added to his carbamazepine and oxcarbazepine -Right arm contractures -Continue with baclofen and Klonopin Headache - tylenol and continue to monitor Ileus with chronic constipation -Surgery operations appreciated -nausea with full liquid diet -Reassess in a.m. Hypothyroidism -Continue with Synthroid Likely home in a.m. if no recurrent seizures and continuing to tolerate oral diet DVT prophylaxis: Heparin Objective - Vital Signs Vital signs: Vital Signs Temp 98.7 F 10/06/21 08:00 Pulse 78 10/06/21 08:00 Resp 19 10/06/21 08:00 BP 111/68 10/06/21 08:00 Pulse Ox 100 10/06/21 08:00 Intake & Output 10/05/21 10/06/21 10/06/21 18:59 06:59 18:59 Intake Total 1200 600 200 Output Total 200 200 400 Balance 1000 400 -200 Weight 63.503 kg Intake: Oral 1200 600 200 Output: Urine 200 200 400 Other: Voiding Method Urinal Urinal # Voids 2 # Bowel Movements 1 1 1 - Labs CBC & Chem 7: 10/04/21 16:07 10/06/21 08:15 Labs: Abnormal Lab Results - Last 24 Hours (Table) 10/06/21 Range/Units 08:15 Sodium 136 L (137-145) mmol/L BUN 3 L (9-20) mg/dL Glucose 125 H (74-99) mg/dL
--- NOTE | 2021-10-06 14:23 | P.PN ---
Subjective Progress Note Date: 10/06/21 CHIEF COMPLAINT: Seizure HISTORY OF PRESENT ILLNESS: Surgical service following in regards to patient's i leus. Patient is having bowel movements and flatus. He tolerated clear liquid diet. No further seizure activity noted. Afebrile. Sodium 136 potassium 3.9 creatinine 0.80 magnesium 2.0 PHYSICAL EXAM: VITAL SIGNS: Reviewed. GENERAL: Well-developed in no acute distress. HEENT: No sclera icterus. Extraocular movements grossly intact. Moist buccal mucosa. Head is atraumatic, normocephalic. ABDOMEN: Soft. Nondistended. Nontender. NEUROLOGIC: Alert and oriented. Cranial nerves II through XII grossly intact. ASSESSMENT: 1. Abdominal distention improved 2. Ileus improved 3. Breakthrough seizure followed by neurology PLAN: -Advanced diet to full liquids and then as tolerated -Patient can be discharged from surgical standpoint when medically cleared Physician Design Assistant note has been reviewed by physician. Signing provider agrees with the documented findings, assessment, and plan of care. Objective - Vital Signs Vital signs: Vital Signs Temp 97.8 F 10/06/21 14:00 Pulse 77 10/06/21 14:00 Resp 19 10/06/21 14:00 BP 126/70 10/06/21 14:00 Pulse Ox 100 10/06/21 14:00 Intake & Output 10/05/21 10/06/21 10/06/21 18:59 06:59 18:59 Intake Total 1200 600 200 Output Total 200 200 400 Balance 1000 400 -200 Weight 63.503 kg Intake: Oral 1200 600 200 Output: Urine 200 200 400 Other: Voiding Method Urinal Urinal # Voids 2 # Bowel Movements 1 1 1 - Labs CBC & Chem 7: 10/04/21 16:07 10/06/21 08:15 Labs: Abnormal Lab Results - Last 24 Hours (Table) 10/06/21 Range/Units 08:15 Sodium 136 L (137-145) mmol/L BUN 3 L (9-20) mg/dL Glucose 125 H (74-99) mg/dL
[2021-10-06] MEDS: SERTRALINE 50 MG TAB PO SCH (16:09)
[2021-10-06] MEDS: carBAMazepine 300 MG CPMP.12HR PO SCH (20:58)
[2021-10-07] MEDS: LEVOTHYROXINE 50 MCG TAB PO SCH (05:36)
[2021-10-07 08:25] VITALS: RESP 18
[2021-10-07] MEDS: OXcarbazepine 300 MG TAB PO SCH (08:51)
[2021-10-07] MEDS: LACOSAMIDE 50 MG TABLET PO SCH ×2 (08:51→17:49)
[2021-10-07] MEDS: SERTRALINE 50 MG TAB PO SCH (08:51)
[2021-10-07] MEDS: HEPARIN SODIUM,PORCINE/PF 5,000 UNIT/0.5 ML SYRINGE SQ SCH ×2 (08:51→16:57)
[2021-10-07] MEDS: BACLOFEN 10 MG TAB PO SCH ×2 (08:51→16:57)
[2021-10-07] MEDS: carBAMazepine 300 MG CPMP.12HR PO SCH (08:52)
--- NOTE | 2021-10-07 10:50 | XR ---
EXAMINATION TYPE: XR KUB DATE OF EXAM: 10/07/2021 COMPARISON: 10/04/2021 INDICATION: Ileus TECHNIQUE: Single view abdomen supine view FINDINGS: Abundant bowel gas is within the bowel. Findings appear stable. Differentiation of colon from small b owel is difficult in this circumstance. Image is overpenetrated. Psoas margins are not visualized. No organomegaly is present. IMPRESSION: 1. Very prominent bowel gas in a similar distribution to the previous exam. Ileus and obstruction are within the differential.
--- NOTE | 2021-10-07 12:41 | P.PN ---
Subjective Progress Note Date: 10/07/21 CHIEF COMPLAINT: Small bowel obstruction HISTORY OF PRESENT ILLNESS: The patient is a 41-year-old male who was admitted for small bowel obstruction. He is on regular diet and tolerating. He denies abdominal pain. He was resting. ROS: No reports of nausea and vomiting. No fevers or chills. No new chest pain. No productive sputum PHYSICAL EXAM: VITAL SIGNS: Reviewed CONSTITUTIONAL: Well developed and in no acute distress. EYES: Conjuctivae without sclera icterus. Extraocular movements grossly intact. HEAD, EARS, NOSE, THROAT: Moist buccal mucosa. Head is atraumatic, normocephalic. Hears conversational speech. No nasal drainage. RESPIRATORY: Non-labored respirations and equal bilateral excursions. CARDIOVASCULAR: Palpable 2+ radial pulses. ABDOMEN: Soft, nontender, nondistended MUSCULOSKELETAL: No gross deformity of the lower extremities noted. No clubbing. No cyanosis. SKIN: Good skin turgor. Well perfused. NEUROLOGIC: Cranial nerves II through XII grossly intact. No focal or lateralizing signs. PSYCH: Appropriate affect. Alert and oriented to person, place and time. CLINICAL LABS: Reviewed. Hgb 10.1 ASSESSMENT: 1. Bowel obstruction PLAN: 1. Clinically doing well. 2. Ok to discharge from surgical standpoint Objective - Vital Signs Vital signs: Vital Signs Temp 98.5 F 10/07/21 08:00 Pulse 100 10/07/21 08:00 Resp 18 10/07/21 08:00 BP 150/84 10/07/21 08:00 Pulse Ox 100 10/07/21 08:00 Intake & Output 10/06/21 10/07/21 10/07/21 18:59 06:59 18:59 Intake Total 1280 480 Output Total 725 Balance 555 480 Intake: Oral 1280 480 Output: Urine 725 Other: Voiding Method Urinal # Bowel Movements 2 1 - Labs CBC & Chem 7: 10/04/21 16:07 10/06/21 08:15
--- NOTE | 2021-10-07 14:58 | P.DS ---
Providers Date of admission: 10/04/21 19:17 Expected date of discharge: 10/07/21 Attending physician: Kiet Hernadez MD Consults: 10/04/21 23:57 Consult Physician Urgent Consulting Provider: Tyler Azar Consult Reason/Comments: breakthrough seizure Do you want consulting provider notified?: Yes Consult Physician Urgent Consulting Provider: Mendel Del Real Consult Reason/Comments: bowel obstruction Do you want consulting provider notified?: Yes Primary care physician: Bernardino Guillermo Hospital Course: Discharge Diagnosis: Breakthrough seizure with history of seizure disorder Ileus with chronic constipation status post multiple abdominal surgeries as a child with chronic loose stools and "internal J-pouch". Hypothyroidism Headache Cerebral palsy Autism Hospital Course: Patient is a 41-year-old male for history of cerebral palsy, seizure disorder, and autism spectrum disorder who presented to the ER with a breakthrough seizure. In the ER he underwent an extensive evaluation. Vital signs and laboratory analysis for essentially unremarkable for acute change. CT abdomen and pelvis showed dilated large bowel obstruction versus stricture not excluded. Patient was admitted and neurology was consulted. General surgery was consulted. Patient's Vimpat was increased by neurology who recommended outpatie nt follow-up. He did have a CT head checked which showed no acute process. General surgery recommended starting him on a diet and he did have a bowel movement that was mostly liquid. He was able to tolerate a regular diet on the day of discharge. He had no recurrent seizures. He was determined stable for discharge home. Follow-up: Vimpat has been added, follow up with his neurologist out of [place] in 1 week, continue all other medications as previously prescribed. Patient seen and examined at bedside. Headache is resolved, foggy feeling is abated. He states he chronically has loose stools and this appears unchanged. Vital signs reviewed and stable. General: non toxic, no distress, appears at stated age Derm: warm, dry Head: atraumatic, normocephalic, symmetric Eyes: EOMI, no lid lag, anicteric sclera Mouth: no lip lesion, mucus membranes moist Cardiovascular: S1S2 reg, no murmur, positive posterior tibial pulse bilateral, Lungs: CTA bilateral, no rhonchi, no rales , no accessory muscle use Abdominal: soft, multiple areas of scarring, no guarding, no appreciable organomegaly Ext: no gross muscle atrophy, no edema, no contractures Neuro: CN II-XI grossly intact, right arm and wrist flexion contracture Psych: Alert, oriented, jovial affect A total of 35 minutes of time were spent preparing this complex discharge summary . Date of Discharge: 10/07 Patient Condition at Discharge: Fair Plan - Discharge Summary Discharge Rx Participant: No New Discharge Prescriptions: New RX: Lacosamide [Vimpat] 50 mg PO BID #60 tablet Continue RX: OXcarbazepine [Oxtellar Xr] 1,200 mg PO DAILY RX: Albuterol Sulfate [Ventolin HFA] 2 puff INHALATION RT-Q4H PRN PRN Reason: Shortness Of Breath RX: Levothyroxine Sodium [Synthroid] 50 mcg PO DAILY RX: Baclofen [Lioresal] 20 mg PO TID RX: Sertraline HCl [Zoloft] 150 mg PO DAILY RX: Ondansetron [Zofran] 4 mg PO Q8H PRN PRN Reason: Nausea RX: Docusate [Colace] 100 mg PO BID PRN PRN Reason: Constipation RX: Polyethylene Glycol 3350 [Miralax] 17 gm PO DAILY PRN PRN Reason: Constipation Equetro 300mg 300 mg PO BID RX: clonazePAM [KlonoPIN] 1 mg PO DAILY RX: Omeprazole 20 mg PO BID PRN PRN Reason: Heartburn RX: Meclizine [Antivert] 25 mg PO Q8H PRN PRN Reason: DIZZINESS Discharge Medication List RX: Albuterol Sulfate [Ventolin HFA] 2 puff INHALATION RT-Q4H PRN 07/21/21 [History] RX: Baclofen [Lioresal] 20 mg PO TID 07/21/21 [History] RX: Levothyroxine Sodium [Synthroid] 50 mcg PO DAILY 07/21/21 [History] RX: OXcarbazepine [Oxtellar Xr] 1,200 mg PO DAILY 07/21/21 [History] RX: Sertraline HCl [Zoloft] 150 mg PO DAILY 07/21/21 [History] RX: clonazePAM [KlonoPIN] 1 mg PO DAILY 07/21/21 [History] Equetro 300mg 300 mg PO BID 10/05/21 [History] RX: Docusate [Colace] 100 mg PO BID PRN 10/05/21 [History] RX: Meclizine [Antivert] 25 mg PO Q8H PRN 10/05/21 [History] RX: Omeprazole 20 mg PO BID PRN 10/05/21 [History] RX: Ondansetron [Zofran] 4 mg PO Q8H PRN 10/05/21 [History] RX: Polyethylene Glycol 3350 [Miralax] 17 gm PO DAILY PRN 10/05/21 [History] RX: Lacosamide [Vimpat] 50 mg PO BID #60 tablet 10/07/21 [Rx] Follow up Appointment(s)/Referral(s): Bernardino Guillermo MD [Primary Care Provider] - 1-2 days (Please call office for your appointment.) Ishan Saunders,Home Care [NON-STAFF] - As Needed Activity/Diet/Wound Care/Special Instructions: Activity: as tolerated Diet: resume prior Special Instructions: Please follow-up with your neurologist next week Discharge Disposition: HOME SELF-CARE
[2021-10-07 15:15] VITALS: BP 145/85; PULSE 73; TEMP 98
== END 2021-10-07 17:59 | disposition home health service (06) ==
LOC: EC 15:08 → 4SSUR 19:17 → INTOOBSV 19:17 → 4SSUR 21:00 → UNDODISIN 10-07 17:59
PROVIDERS: ADMIT Internal Medicine; ATTEND Internal Medicine
DX: G40.909 Epilepsy, unspecified, not intractable, without status epilepticus (principal); K56.7 Ileus, unspecified; F84.0 Autistic disorder; K59.09 Other constipation; G80.9 Cerebral palsy, unspecified; D64.9 Anemia, unspecified; E03.9 Hypothyroidism, unspecified; M24.531 Contracture, right wrist; F32.A Depression, unspecified; F41.9 Anxiety disorder, unspecified; R51.9 Headache, unspecified; R32 Unspecified urinary incontinence; Z79.890 Hormone replacement therapy; Z79.899 Other long term (current) drug therapy; Z87.19 Personal history of other diseases of the digestive system; Z98.890 Other specified postprocedural states; Z88.0 Allergy status to penicillin; Z82.0 Family history of epilepsy and other diseases of the nervous system
CPT/HCPCS: 96372 ×4; 99285; 36415; 94640; 93005; 80156; 80053; 80048; 83735 ×2; 85025; 74018 ×2; 72125; 70450; 74177; G0378 ×4; Q9967; J1644 ×3

== ENCOUNTER 2021-11-18 16:32 | Observation (INO) | payer MEDICARE, OTHER ==
[2021-11-18] MEDS ORDERED: SODIUM CHLORIDE 0.9% 1,000 ML IV STA (17:00)
--- NOTE | 2021-11-18 17:04 | ED ---
Nausea/Vomiting/Diarrhea HPI - General Chief complaint: Nausea/Vomiting/Diarrhea Stated complaint: Weakness Time Seen by Provider: 11/18/21 16:46 Source: EMS, RN notes reviewed Mode of arrival: EMS Limitations: altered mental status, physical limitation - History of Present Illness Initial comments: This is a 41-year-old developmentally delayed patient who presents to the emergency department stating that he does not feel well. Patient states that he was at [facility] this morning and was treated for dehydration. Patient went home and still wasn't feeling well. Patient states he felt like he had to have a bowel movement. Patient had a bowel movement since he got here and states he is feeling somewhat better at this time. He denies any vomiting. No headache, no fever or chills, no changes in vision or hearing, no sore throat or difficulty with speech, no neck pain, no chest pain or shortness of breath, no abdominal pain, no nausea or vomiting, no changes in urination or bowel movements, no numbness or tingling, no extremity pain, no skin rashes or lesions. No hematemesis or coffee-ground emesis. No melena or hematochezia. No known fever. MD complaint: diarrhea - Related Data Home Medications Medication Instructions Recorded Confirmed Albuterol Sulfate [Ventolin HFA] 2 puff INHALATION RT-Q4H PRN 07/21/21 10/05/21 Baclofen [Lioresal] 20 mg PO TID 07/21/21 10/05/21 Levothyroxine Sodium [Synthroid] 50 mcg PO DAILY 07/21/21 10/05/21 OXcarbazepine [Oxtellar Xr] 1,200 mg PO DAILY 07/21/21 10/05/21 Sertraline HCl [Zoloft] 150 mg PO DAILY 07/21/21 10/05/21 clonazePAM [KlonoPIN] 1 mg PO DAILY 07/21/21 10/05/21 Docusate [Colace] 100 mg PO BID PRN 10/05/21 10/05/21 Equetro 300mg 300 mg PO BID 10/05/21 10/05/21 Meclizine [Antivert] 25 mg PO Q8H PRN 10/05/21 10/05/21 Omeprazole 20 mg PO BID PRN 10/05/21 10/05/21 Ondansetron [Zofran] 4 mg PO Q8H PRN 10/05/21 10/05/21 Polyethylene Glycol 3350 [Miralax] 17 gm PO DAILY PRN 10/05/21 10/05/21 Previous Rx's Medication Instructions Recorded Lacosamide [Vimpat] 50 mg PO BID #60 tablet 10/07/21 Allergies Allergy/AdvReac Type Severity Reaction Status Date / Time Penicillins Allergy Anaphylaxis Verified 10/05/21 09:18 Review of Systems ROS Statement: Those systems with pertinent positive or pertinent negative responses have been documented in the HPI. ROS Other: All systems not noted in ROS Statement are negative. Past Medical History Past Medical History: Seizure Disorder Additional Past Medical History / Comment(s): Cerebral palsy, autism History of Any Multi-Drug Resistant Organisms: None Reported Past Surgical History: No Surgical Hx Reported Additional Past Surgical History / Comment(s): Multiple abdominal/intestinal surgeries including an "internal J pouch" and most of large intestine removed as an , endoscopy, colonoscopy Past Anesthesia/Blood Transfusion Reactions: No Reported Reaction Past Psychological History: Anxiety, Depression Smoking Status: Never smoker Past Alcohol Use History: None Reported Past Drug Use History: None Reported - Past Family History Father Additional Family Medical History / Comment(s): Father is . He had parkinson's. Mother Additional Family Medical History / Comment(s): Mother is . She had ALS. General Exam Limitations: altered mental status, physical limitation General appearance: alert, in no apparent distress Head exam: Present: atraumatic, normocephalic, normal inspection Eye exam: Present: normal appearance, PERRL, EOMI. Absent: scleral icterus, conjunctival injection, periorbital swelling ENT exam: Present: normal exam, normal oropharynx, mucous membranes dry, mucous membranes moist Neck exam: Present: normal inspection. Absent: tenderness, meningismus, lymphadenopathy Respiratory exam: Present: normal lung sounds bilaterally, chest wall tenderness, accessory muscle use. Absent: respiratory distress, wheezes, rales, rhonchi, stridor Cardiovascular Exam: Present: regular rate, normal rhythm, normal heart sounds. Absent: systolic murmur, diastolic murmur, rubs, gallop, clicks GI/Abdominal exam: Present: soft, distended (Mild distention), normal bowel sounds. Absent: tenderness, guarding, rebound, rigid Extremities exam: Present: normal inspection, full ROM, normal capillary refill. Absent: tenderness, pedal edema, joint swelling, calf tenderness Back exam: Present: normal inspection Neurological exam: Present: alert, oriented X3, CN II-XII intact Psychiatric exam: Present: normal affect, normal mood Skin exam: Present: warm, dry, intact, normal color. Absent: rash Course Vital Signs 11/18/21 11/18/21 16:34 18:38 Temperature 98.6 F 99.1 F Pulse Rate 86 91 Respiratory 18 18 Rate Blood Pressure 156/96 148/91 O2 Sat by Pulse 97 98 Oximetry - Reevaluation(s) Reevaluation #1: 11/18/21 18:56 Medical record is reviewed Symptoms are improved here in the emergency department Patient is informed of results and questions answered Patient in no distress Repeat abdominal exam is benign. No significant tenderness. Minimal increased bowel sounds. Reevaluation #2: 11/18/21 19:50 Patient able to tolerate both solids and liquid foods. Patient is having bowel movements and is passing flatus. Patient stable for discharge. We'll have the patient here to mostly a clear liquid diet until follow-up. Medical Decision Making - Medical Decision Making Past attain what patient has had some constipation then subsequent diarrhea. However patient is not vomiting, able hold down fluids. Abdomen soft. Laboratory investigations were essentially normal. Patient was hydrated here. I did send stool studies after patient had a bout of diarrhea. These are pending. Patient to follow-up with his regular physician. Patient was told to return to the ER for any signs or symptoms worsen. Told to return immediately if any other problems arise. All questions answered. Treatment plan discussed. Patient in agreement Every effort has been made to ensure accuracy of this dictation. However, due to the limitations of electronic medical records and dictation devices, errors in charting still occur. Supervisors Dr. Womack - Lab Data Result diagrams: 11/18/21 17:03 11/18/21 17:03 Lab Results 11/18/21 11/18/21 11/18/21 Range/Units 17:03 17:03 17:03 WBC 8.8 (3.8-10.6) k/uL RBC 5.39 (4.30-5.90) m/uL Hgb 13.1 D (13.0-17.5) gm/dL Hct 44.4 (39.0-53.0) % MCV 82.3 (80.0-100.0) fL MCH 24.4 L (25.0-35.0) pg MCHC 29.6 L (31.0-37.0) g/dL RDW 23.6 H (11.5-15.5) % Plt Count 267 (150-450) k/uL MPV 9.4 Neutrophils % 88 % Lymphocytes % 7 % Monocytes % 3 % Eosinophils % 1 % Basophils % 0 % Neutrophils # 7.8 H (1.3-7.7) k/uL Lymphocytes # 0.6 L (1.0-4.8) k/uL Monocytes # 0.3 (0-1.0) k/uL Eosinophils # 0.1 (0-0.7) k/uL Basophils # 0.0 (0-0.2) k/uL Hypochromasia Marked Anisocytosis Moderate Microcytosis Moderate Sodium 140 (137-145) mmol/L Potassium 4.0 (3.5-5.1) mmol/L Chloride 104 (98-107) mmol/L Carbon Dioxide 26 (22-30) mmol/L Anion Gap 10 mmol/L BUN 19 (9-20) mg/dL Creatinine 0.80 (0.66-1.25) mg/dL Est GFR (CKD-EPI)AfAm >90 (>60 ml/min/1.73 sqM) Est GFR (CKD-EPI)NonAf >90 (>60 ml/min/1.73 sqM) Glucose 157 H (74-99) mg/dL Calcium 8.7 (8.4-10.2) mg/dL Phosphorus 4.0 (2.5-4.5) mg/dL Magnesium 2.1 (1.6-2.3) mg/dL Total Bilirubin 0.2 (0.2-1.3) mg/dL AST 32 (17-59) U/L ALT 19 (4-49) U/L Alkaline Phosphatase 111 (38-126) U/L Total Protein 7.3 (6.3-8.2) g/dL Albumin 4.4 (3.5-5.0) g/dL Lipase 35 (23-300) U/L Stool Occult Blood Positive (Negative) Disposition Clinical Impression: Acute diarrhea Disposition: HOME SELF-CARE Condition: Stable Instructions (If sedation given, give patient instructions): Dehydration (ED), Acute Diarrhea (ED) Additional Instructions: Follow-up with your regular physician as directed. Return to the ER immediately if any symptoms worsen, new symptoms arise, or any other problems develop. Is patient prescribed a controlled substance at d/c from ED?: No Referrals: Bernardino Guillermo MD [Primary Care Provider] - 11/20/21 Time of Disposition: 18:55
[2021-11-18 17:37] LABS: Anisocytosis Moderate; Basophils % (A) 0 %; Eosinophils # (A) 0.1 k/uL (0-0.7); Eosinophils % (A) 1 %; HCT 44.4 % (39.0-53.0); Hypochromasia Marked; Lymphocytes # (A) 0.6 k/uL (1.0-4.8); Lymphocytes % (A) 7 %; MCH 24.4 pg (25.0-35.0); MCHC 29.6 g/dL (31.0-37.0); MCV 82.3 fL (80.0-100.0); Mean Platelet Volume 9.4; Microcytosis Moderate; Monocytes # (A) 0.3 k/uL (0-1.0); Monocytes % (A) 3 %; Neutrophils # (A) 7.8 k/uL (1.3-7.7); Neutrophils % (A) 88 %; Platelet Count 267 k/uL (150-450); RBC 5.39 m/uL (4.30-5.90); RDW 23.6 % (11.5-15.5); WBC 8.8 k/uL (3.8-10.6)
--- NOTE | 2021-11-18 17:41 | XR ---
EXAMINATION TYPE: XR abdomen acute w cxr DATE OF EXAM: 11/18/2021 5:36 PM INDICATION: Patient age:Male; 41 years old; Reason for study: Abdominal distention COMPARISON: CT abdomen pelvis 10/04/2021. NIQUE: Two radiographic views of the abdomen and an a chest radiograph were obtained. FINDINGS CHEST: Lungs/Pleura: There is no evidence of pleural effusion, focal consolidation or pneumothorax. Mediastinum: Unremarkable. Vasculature: Normal. Heart: Normal in size. Musculoskeletal: The osseous structures are intact. FINDINGS ABDOMEN: Bowel gas pattern: Nonspecific dilation of multiple loops of bowel which is not significantly changed from prior CT on 10/04/2021. Abnormal calcifications: None. Musculoskeletal: Normal. Other: None. IMPRESSION: 1. Gaseous distention of multiple loops of bowel similar to 10/04/2021 CT abdomen pelvis. 2. No acute cardiopulmonary process
[2021-11-18 17:56] LABS: ALT 19 U/L (4-49); AST 32 U/L (17-59); Albumin 4.4 g/dL (3.5-5.0); Alkaline Phosphatase 111 U/L (38-126); Anion Gap 10 mmol/L; Blood Urea Nitrogen 19 mg/dL (9-20); Calcium 8.7 mg/dL (8.4-10.2); Carbon Dioxide 26 mmol/L (22-30); Chloride 104 mmol/L (98-107); Glucose 157 mg/dL (74-99); Lipase 35 U/L (23-300); Magnesium 2.1 mg/dL (1.6-2.3); Sodium 140 mmol/L (137-145); Total Bilirubin 0.2 mg/dL (0.2-1.3); Total Protein 7.3 g/dL (6.3-8.2)
[2021-11-18 17:58] LABS: African American GFR (CKD) >90 (>60 ml/min/1.73 sqM); Non-African American GFR(CKD) >90 (>60 ml/min/1.73 sqM)
[2021-11-18 18:03] LABS: HGB 13.1 gm/dL (13.0-17.5)
[2021-11-18] MEDS ORDERED: diphenhydrAMINE 50 MG/ML 1 ML VIAL IVP STA (20:21)
[2021-11-18] MEDS ORDERED: METOCLOPRAMIDE 5 MG/ML 2 ML VIAL IVP STA (20:21)
--- NOTE | 2021-11-18 21:11 | CT ---
EXAMINATION TYPE: CT abdomen pelvis w con DATE OF EXAM: 11/18/2021 COMPARISON: 10/04/2021 HISTORY: pain CT DLP: 457.3 mGycm Automated exposure control for dose reduction was used. CONTRAST: Performed with IV Contrast, patient injected with 100 mL of Isovue 300. There is mild subsegmental atelectasis right lung base. No pleural effusion. Heart size is normal. No pericardial effusion. Liver is intact. Spleen is intact. There is no pancreatic mass. The bile ducts are not dilated. Gallb ladder appears normal. There are multiple dilated air and fluid-filled large bowel loops.Large bowel dilated down to the rectum. There is no inguinal hernia. No ascites. No sign of free air. There is no adrenal mass. Kidneys show satisfactory contrast opacification. No hydronephrosis. There is no retroperitoneal adenopathy. Ureters are not dilated. The lumbar spine is intact. Bony pelvis in tact. IMPRESSION: Dilated large bowel with fluid levels down to the rectum consistent with ileus and diarrhea. This diana ears similar to old exam. No free air. Mild subsegmental atelectasis.
[2021-11-18] MEDS ORDERED: ONDANSETRON 4 MG/2 ML VIAL IVP PRN (21:53)
[2021-11-18] MEDS ORDERED: NALOXONE 0.4 MG/ML 1 ML VIAL IV PRN (21:53)
[2021-11-18] MEDS ORDERED: ACETAMINOPHEN TAB 325 MG TAB PO PRN (21:53)
[2021-11-18] MEDS ORDERED: MECLIZINE 25 MG TAB PO PRN (21:57)
[2021-11-18] MEDS ORDERED: DOCUSATE 100 MG CAP PO PRN (21:57)
[2021-11-18] MEDS ORDERED: ALBUTEROL NEBULIZED 2.5 MG/3 ML INHALATION PRN (21:57)
[2021-11-18] MEDS: BACLOFEN 10 MG TAB PO SCH (22:22)
[2021-11-18] MEDS: SODIUM CHLORIDE 0.9% 1,000 ML IV SCH (22:22)
--- NOTE | 2021-11-18 22:22 | P.HPIM ---
History of Present Illness H&P Date: 11/18/21 Chief Complaint: Nausea vomiting and diarrhea This is a 41-year-old black male who has extensive intra-abdominal surgery. He was seen at [facility] earlier this morning for nausea vomiting and diarrhea and was found to be volume depleted. He was discharged back to assisted living but as soon as he got there he was transferred to the emergency room at our facility. There was no reported fever. At the time of examination patient is not a very good historian but does not appear to be in distress. There was no reported fever. Assisted-living unable to take him tonight as they will have 24-hour supervision. Review of Systems 10 systems reviewed, pertinent positive and negative findings as in HPI. Vomiting vomiting and diarrhea. No abdominal pain. Past Medical History Past Medical History: Seizure Disorder Additional Past Medical History / Comment(s): Cerebral palsy, autism History of Any Multi-Drug Resistant Organisms: None Reported Past Surgical History: No Surgical Hx Reported Additional Past Surgical History / Comment(s): Multiple abdominal/intestinal surgeries including an "internal J pouch" and most of large intestine removed as an , endoscopy, colonoscopy Past Anesthesia/Blood Transfusion Reactions: No Reported Reaction Past Psychological History: Anxiety, Depression Smoking Status: Never smoker Past Alcohol Use History: None Reported Past Drug Use History: None Reported - Past Family History Father Additional Family Medical History / Comment(s): Father is . He had parkinson's. Mother Additional Family Medical History / Comment(s): Mother is . She had ALS. Medications and Allergies Home Medications Medication Instructions Recorded Confirmed Type Albuterol Sulfate [Ventolin HFA] 2 puff INHALATION RT-QID PRN 07/21/21 11/18/21 History Baclofen [Lioresal] 20 mg PO TID 07/21/21 11/18/21 History Levothyroxine Sodium [Synthroid] 50 mcg PO DAILY 07/21/21 11/18/21 History OXcarbazepine [Oxtellar Xr] 1,200 mg PO DAILY 07/21/21 11/18/21 History Sertraline HCl [Zoloft] 150 mg PO DAILY 07/21/21 11/18/21 History clonazePAM [KlonoPIN] 1 mg PO DAILY 07/21/21 11/18/21 History Docusate [Colace] 100 mg PO BID PRN 10/05/21 11/18/21 History Equetro 300mg 300 mg PO BID 10/05/21 11/18/21 History Meclizine [Antivert] 25 mg PO Q8H PRN 10/05/21 11/18/21 History Omeprazole 20 mg PO BID 10/05/21 11/18/21 History Ondansetron [Zofran] 4 mg PO Q8H PRN 10/05/21 11/18/21 History Polyethylene Glycol 3350 [Miralax] 17 gm PO DAILY PRN 10/05/21 11/18/21 History Albuterol Sulfate [Proventil Hfa] 2 puff INHALATION RT-Q6H PRN 11/18/21 11/18/21 History Cyanocobalamin [Vitamin B-12 1,000 mcg SQ Q30D 11/18/21 11/18/21 History Injection] Dextroamphetamine/Amphetamine 30 mg PO DAILY 11/18/21 11/18/21 History [Adderall Xr 30 mg Capsule] EPINEPHrine (Auto Inject) [Epipen] 0.3 mg IM ONCE PRN 11/18/21 11/18/21 History OXcarbazepine [Trileptal] 600 mg PO DAILY 11/18/21 11/18/21 History Pyridoxine HCl (Vitamin B6) 500 mg PO DAILY 11/18/21 11/18/21 History [Vitamin B-6] Allergies Allergy/AdvReac Type Severity Reaction Status Date / Time Penicillins Allergy Anaphylaxis Verified 11/18/21 19:50 Physical Exam Vitals: Vital Signs Temp Pulse Resp BP Pulse Ox 11/18/21 20:23 87 16 150/104 99 11/18/21 18:38 99.1 F 91 18 148/91 98 11/18/21 16:34 98.6 F 86 18 156/96 97 Intake and Output 11/18/21 11/18/21 11/18/21 06:59 14:59 22:59 Other: Weight 58.967 kg Constitutional: No acute distress, conversant, pleasant, not a very good historian Eyes: Anicteric sclerae, moist conjunctiva, no lid-lag, PERRLA ENMT: NC/AT,Oropharynx clear, no erythema, exudates Neck:Supple, FROM, no masses, or JVD, No carotid bruits; No thyromegaly Lungs: Clear to auscultation, Clear to percussion, Normal respiratory effort, no accessory muscle use Cardiovascular: Heart regular in rate and rhythm, No murmurs, gallops, or rubs no peripheral edema Abdominal: Soft Nontender, slightly distended, no guarding, no rebound or rigidity, Normoactive bowel sounds Skin: Normal temperature, tone, texture, turgor, No induration No subcutaneous nodules, No rash, lesions, No ulcers Extremities:No digital cyanosis No clubbing, Pedal pulses intact and symmetrical Radial pulses intact and symmetrical Normal gait and station, No calf tenderness Psychiatric: Alert and oriented to person, place and time, Appropriate affect Intact judgement Neuro: Muscles Strength 5/5 in all 4 extremities Results CBC & Chem 7: 11/18/21 17:03 11/18/21 17:03 Labs: Abnormal Lab Results - Last 24 Hours (Table) 11/18/21 11/18/21 Range/Units 17:03 17:03 MCH 24.4 L (25.0-35.0) pg MCHC 29.6 L (31.0-37.0) g/dL RDW 23.6 H (11.5-15.5) % Neutrophils # 7.8 H (1.3-7.7) k/uL Lymphocytes # 0.6 L (1.0-4.8) k/uL Glucose 157 H (74-99) mg/dL Assessment and Plan Plan: 1. Chronic abdominal pain with multiple intra-abdominal surgeries, abdominal CT consistent with dilated large bowel consistent with ileus, this appears to be chronic: Continue supportive care, IV fluids, clear liquids for now, advance diet as tolerated. Pain control. 2. Hypothyroidism: Continue Synthroid 3. History of cerebral palsy: Continue supportive care 4. GERD without esophagitis: Continue PPI 5. History of autism: Continue supportive care 6. History of seizures: On carbamazepine. DVT prophylaxis: SCDs Disposition: Back to assisted living but likely a different one with 24-hour supervision. Case management/social media senior associate to assist.
[2021-11-19] MEDS: LEVOTHYROXINE 50 MCG TAB PO SCH (06:01)
[2021-11-19] MEDS: SERTRALINE 100 MG TAB PO SCH (08:53)
[2021-11-19] MEDS: PYRIDOXINE 50 MG TAB PO SCH (08:54)
[2021-11-19] MEDS: OXcarbazepine 300 MG TAB PO SCH (08:54)
[2021-11-19] MEDS: clonazePAM 1 MG TAB PO SCH (08:54)
[2021-11-19] MEDS: BACLOFEN 10 MG TAB PO SCH ×3 (08:54→20:50)
[2021-11-19] MEDS: PANTOPRAZOLE 40 MG TABLET PO SCH ×2 (08:54→20:50)
[2021-11-19] MEDS: OXCARBAZEPINE 300 MG PO SCH (08:55)
[2021-11-19] MEDS: PATIENT'S OWN (Dextroamphetamine/Amphetamine [Adderall Xr 30 Mg Capsule] 30 MG Cap.Er PO SCH (08:55)
[2021-11-19] MEDS ORDERED: CARBAMAZEPINE PO SCH (09:00)
[2021-11-19 09:37] LABS: African American GFR (CKD) 125.6 (60.0-200.0); Albumin 4.1 g/dL (3.8-4.9); Albumin/Globulin Ratio 1.68 (1.60-3.17); Anion Gap 11.1 mmol/L (10.00-18.00); BUN/Creat Ratio 15.11 Ratio (12.00-20.00); Blood Urea Nitrogen 12.8 mg/dL (9.0-27.0); Carbon Dioxide 25.1 mmol/L (20.0-27.5); Globulin 2.4 g/dL (1.6-3.3); Non-African American GFR(CKD) 108.4 (60.0-200.0); Potassium 3.8 mmol/L (3.5-5.5); Total Bilirubin 0.2 mg/dL (0.30-1.20); Total Protein 6.5 g/dL (6.2-8.2)
[2021-11-19 10:04] LABS: Basophils # (A) 0.04 X 10*3/uL (0.00-0.10); Basophils % (A) 0.7 %; Eosinophils # (A) 0.08 X 10*3/uL (0.04-0.35); Eosinophils % (A) 1.4 %; HCT 40.7 % (39.6-50.0); HGB 11.9 g/dL (13.0-17.0); Immature Grans, Automated 0.2 %; Lymphocytes # (A) 1.31 X 10*3/uL (0.90-5.00); MCH 23.2 pg (27.0-32.0); MCHC 29.2 g/dL (32.0-37.0); MCV 79.3 fL (80.0-97.0); Monocytes # (A) 0.49 X 10*3/uL (0.20-1.00); Monocytes % (A) 8.6 %; NRBC Per 100 WBC 0 /100 WBCS (0.0-0.0); Neutrophils # (A) 3.76 X 10*3/uL (1.80-7.70); Neutrophils % (A) 66.1 %; Platelet Count 238 X 10*3/uL (140-440); RBC 5.13 X 10*6/uL (4.40-5.60); RDW 27.5 % (11.5-14.5); WBC 5.69 X 10*3/uL (4.50-10.00)
[2021-11-19] MEDS: carBAMazepine 300 MG CPMP.12HR PO SCH ×2 (10:45→20:49)
[2021-11-19] MEDS: SODIUM CHLORIDE 0.9% 1,000 ML IV SCH ×2 (11:00→20:50)
--- NOTE | 2021-11-19 16:26 | P.PN ---
Subjective Progress Note Date: 11/19/21 This is a 41-year-old black male who has extensive intra-abdominal surgery. He was seen at [facility] earlier this morning for nausea vomiting and diarrhea and was found to be volume depleted. He was discharged back to assisted living but as soon as he got there he was transferred to the emergency room at our facility. There was no reported fever. At the time of examination patient is not a very good historian but does not appear to be in distress. There was no reported fever. Assisted-living unable to take him tonight as they will have 24-hour supervision. Subjective Patient seen and evaluated at bedside, today patient does not report any worsen ing of his breathing or report any new significant chest pain. Patient remains in no acute distress. Patient questions and concerns addressed at bedside, proper counseling done. Plan discussed with nursing staff. Assessment and plan Acute on Chronic abdominal pain with multiple intra-abdominal surgeries Abdominal CT consistent with dilated large bowel consistent with ileus, this appears to be chronic: Continue supportive care, IV fluids, clear liquids for now, advance diet as tolerated. Pain control. GI consult Hypothyroidism Continue Synthroid History of seizures: On carbamazepine. History of cerebral palsy Continue supportive care GERD without esophagitis: Continue PPI History of autism: Continue supportive care DVT prophylaxis: Subcutaneous heparin CODE STATUS: Full code Discharge plan/next site of care: Pending workup hospital course, likely back to home Objective - Vital Signs Vital signs: Vital Signs Temp 98.9 F 11/19/21 11:29 Pulse 74 11/19/21 11:29 Resp 18 11/19/21 11:29 BP 136/88 11/19/21 11:29 Pulse Ox 98 11/19/21 11:29 FiO2 Intake & Output 11/18/21 11/19/21 11/19/21 18:59 06:59 18:59 Intake Total 250 Output Total 700 Balance -450 Weight 58.967 kg Intake: Oral 250 Output: Stool 700 Other: Voiding Method Toilet # Voids 1 # Bowel Movements 1 General: non toxic, no acute distress, alert oriented to time place and person Head: atraumatic, normocephalic, symmetric Eyes: no lid lesion], anicteric sclera Mouth: no lip lesion, mucus membranes moist Cardiovascular: S1S2 reg rate and rhythm, no murmur, no gallop Lungs: Bilateral equal air entry, no wheezing no rhonchi no crackles. Abdominal: soft, nontender to palpation, no guarding, no appreciable organome felicity Ext: no gross muscle atrophy, no edema extremities warm to suppose a positive Neuro: Alert oriented to time place and person, exam grossly nonfocal - Labs CBC & Chem 7: 11/19/21 06:01 11/19/21 06:01 Labs: Abnormal Lab Results - Last 24 Hours (Table) 11/18/21 11/18/21 11/18/21 Range/Units 17:03 17:03 17:03 Hgb (13.0-17.0) g/dL MCV (80.0-97.0) fL MCH 24.4 L (25.0-35.0) pg MCHC 29.6 L (31.0-37.0) g/dL RDW 23.6 H (11.5-15.5) % Neutrophils # 7.8 H (1.3-7.7) k/uL Lymphocytes # 0.6 L (1.0-4.8) k/uL Glucose 157 H (74-99) mg/dL Total Bilirubin (0.30-1.20) mg/dL Stool Lactoferrin POSITIVE A (NEGATIVE) 11/19/21 11/19/21 Range/Units 06:01 06:01 Hgb 11.9 L (13.0-17.0) g/dL MCV 79.3 L (80.0-97.0) fL MCH 23.2 L (25.0-35.0) pg MCHC 29.2 L (31.0-37.0) g/dL RDW 27.5 H (11.5-15.5) % Neutrophils # (1.3-7.7) k/uL Lymphocytes # (1.0-4.8) k/uL Glucose (74-99) mg/dL Total Bilirubin 0.20 L (0.30-1.20) mg/dL Stool Lactoferrin (NEGATIVE) Microbiology - Last 24 Hours (Table) 11/18/21 17:03 Stool Culture - Preliminary Stool
[2021-11-19 21:15] VITALS: RESP 16
[2021-11-20] MEDS: LEVOTHYROXINE 50 MCG TAB PO SCH (05:29)
[2021-11-20] MEDS: PYRIDOXINE 50 MG TAB PO SCH (08:22)
[2021-11-20] MEDS: PANTOPRAZOLE 40 MG TABLET PO SCH ×2 (08:22→21:12)
[2021-11-20] MEDS: SERTRALINE 100 MG TAB PO SCH (08:22)
[2021-11-20] MEDS: BACLOFEN 10 MG TAB PO SCH ×3 (08:23→21:12)
[2021-11-20] MEDS: OXcarbazepine 300 MG TAB PO SCH (08:23)
[2021-11-20] MEDS: clonazePAM 1 MG TAB PO SCH (08:23)
[2021-11-20] MEDS: PATIENT'S OWN (Dextroamphetamine/Amphetamine [Adderall Xr 30 Mg Capsule] 30 MG Cap.Er PO SCH (08:24)
[2021-11-20] MEDS: OXCARBAZEPINE 300 MG PO SCH (08:24)
[2021-11-20] MEDS: carBAMazepine 300 MG CPMP.12HR PO SCH ×2 (08:41→21:12)
[2021-11-20] MEDS: LACOSAMIDE 50 MG TABLET PO SCH ×2 (09:56→21:12)
[2021-11-20] MEDS ORDERED: OXcarbazepine 300 MG TAB PO ONE (10:00)
--- NOTE | 2021-11-20 12:47 | P.PN ---
Subjective Patient was examined at bedside not complaining of any worsening symptomatology. Patient did have a bowel movement in the emergency department and small intermittent once as per RN. Objective - Vital Signs Vital signs: Vital Signs Temp 98.8 F 11/20/21 12:20 Pulse 79 11/20/21 12:20 Resp 16 11/20/21 12:20 BP 138/80 11/20/21 12:20 Pulse Ox 99 11/20/21 12:20 FiO2 Intake & Output 11/19/21 11/20/21 11/20/21 18:59 06:59 18:59 Intake Total 590 Balance 590 Intake: Oral 590 Other: Voiding Method Toilet Toilet # Voids 3 1 # Bowel Movements 3 1 - Exam General: non toxic, no acute distress, alert oriented to time place and person Head: atraumatic, normocephalic, symmetric Eyes: no lid lesion], anicteric sclera Mouth: no lip lesion, mucus membranes moist Cardiovascular: S1S2 reg rate and rhythm, no murmur, no gallop Lungs: Bilateral equal air entry, no wheezing no rhonchi no crackles. Abdominal: soft, nontender to palpation, no guarding, no appreciable organomegaly Ext: no gross muscle atrophy, no edema extremities warm to suppose a positive Neuro: Alert oriented to time place and person, exam grossly nonfocal - Labs CBC & Chem 7: 11/19/21 06:01 11/19/21 06:01 Labs: Abnormal Lab Results - Last 24 Hours (Table) 11/18/21 Range/Units 17:07 Oxcarbazepine 35.8 H (10-35) ug/mL Assessment and Plan Assessment: Acute on Chronic abdominal pain with multiple intra-abdominal surgeries Abdominal CT consistent with dilated large bowel consistent with ileus, this appears to be chronic: Continue supportive care, IV fluids, clear liquids for now, advance diet as tolerated. Pain control. GI consult pitting recommendations Hypothyroidism Continue Synthroid History of seizures: On carbamazepine. History of cerebral palsy Continue supportive care GERD without esophagitis: Continue PPI History of autism: Continue supportive care DVT prophylaxis: Subcutaneous heparin CODE STATUS: Full code Discharge plan/next site of care: Pending workup hospital course, likely back to home
--- NOTE | 2021-11-20 14:51 | P.GSCN ---
History of Present Illness Consult date: 11/20/21 Reason for Consult: Nausea History of present illness: Is a 41-year-old male with a extensive surgical history. Patient had complaints of nausea and diarrhea. The patient is a poor historian. Apparently had a colectomy performed the child. I don't know what this was done for. He has had issues with nausea and diarrhea chronically. He currently states he feels better. He denies any significant abdominal pain. Past Medical History Past Medical History: Seizure Disorder Additional Past Medical History / Comment(s): Cerebral palsy, autism History of Any Multi-Drug Resistant Organisms: None Reported Past Surgical History: No Surgical Hx Reported Additional Past Surgical History / Comment(s): Multiple abdominal/intestinal surgeries including an "internal J pouch" and most of large intestine removed as an , endoscopy, colonoscopy Past Anesthesia/Blood Transfusion Reactions: No Reported Reaction Past Psychological History: Anxiety, Depression Additional Psychological History / Comment(s): Pt resides at [facility] in [place], [place]. RHYS Akhtar is listed as his legal guardian. He uses a walker to ambulate. 3 meals are provided. Staff manage his medications. He has a roomate. Smoking Status: Never smoker Past Alcohol Use History: None Reported Past Drug Use History: None Reported - Past Family History Father Additional Family Medical History / Comment(s): Father is . He had parkinson's. Mother Additional Family Medical History / Comment(s): Mother is . She had ALS. Medications and Allergies Home Medications Medication Instructions Recorded Confirmed Type Albuterol Sulfate [Ventolin HFA] 2 puff INHALATION RT-QID PRN 07/21/21 11/20/21 History Baclofen [Lioresal] 20 mg PO TID 07/21/21 11/20/21 History Levothyroxine Sodium [Synthroid] 50 mcg PO DAILY 07/21/21 11/20/21 History Sertraline HCl [Zoloft] 150 mg PO DAILY 07/21/21 11/20/21 History clonazePAM [KlonoPIN] 1 mg PO DAILY 07/21/21 11/20/21 History Docusate [Colace] 100 mg PO BID PRN 10/05/21 11/18/21 History Equetro 300mg 300 mg PO BID 10/05/21 11/20/21 History Meclizine [Antivert] 25 mg PO Q8H PRN 10/05/21 11/18/21 History Omeprazole 20 mg PO BID 10/05/21 11/20/21 History Ondansetron [Zofran] 4 mg PO Q8H PRN 10/05/21 11/20/21 History Polyethylene Glycol 3350 [Miralax] 17 gm PO DAILY PRN 10/05/21 11/20/21 History Cyanocobalamin [Vitamin B-12 1,000 mcg SQ Q30D 11/18/21 11/18/21 History Injection] Dextroamphetamine/Amphetamine 30 mg PO DAILY 11/18/21 11/20/21 History [Adderall Xr 30 mg Capsule] EPINEPHrine (Auto Inject) [Epipen] 0.3 mg IM ONCE PRN 11/18/21 11/18/21 History Pyridoxine HCl (Vitamin B6) 500 mg PO DAILY 11/18/21 11/18/21 History [Vitamin B-6] Lacosamide [Vimpat] 50 mg PO BID 11/20/21 11/20/21 History OXcarbazepine [Trileptal] 1,200 mg PO DAILY 11/20/21 11/20/21 History Allergies Allergy/AdvReac Type Severity Reaction Status Date / Time Penicillins Allergy Anaphylaxis Verified 11/18/21 19:50 Surgical - Exam Vital Signs Temp Pulse Resp BP Pulse Ox 98.6 F 86 18 156/96 97 11/18/21 16:34 11/18/21 16:34 11/18/21 16:34 11/18/21 16:34 11/18/21 16:34 - General well developed, well nourished, no distress - Eyes PERRL - ENT normal pinna, normal nares - Neck no masses - Respiratory normal expansion - Cardiovascular Rhythm: regular - Abdomen Minimal distention Abdomen: soft, non tender Results - Labs 11/19/21 06:01 11/19/21 06:01 Abnormal Lab Results - Last 24 Hours (Table) 11/18/21 Range/Units 17:07 Oxcarbazepine 35.8 H (10-35) ug/mL Assessment and Plan Assessment: Chronic abdominal pain with history of chronic nausea and diarrhea. Patient may have had a subtotal colectomy as a child. His computed tomography scan reviewed. The patient does have some dilated bowel leading down to the rectum. This could be an anastomosis. The patient is passing gas and diarrhea. He'll be observed. No surgical intervention is planned.
[2021-11-20] MEDS: SODIUM CHLORIDE 0.9% 1,000 ML IV SCH ×2 (16:01→21:12)
[2021-11-21] MEDS: LEVOTHYROXINE 50 MCG TAB PO SCH (05:23)
[2021-11-21] MEDS ORDERED: OXcarbazepine 300 MG TAB PO SCH (09:00)
[2021-11-21] MEDS: BACLOFEN 10 MG TAB PO SCH (09:31)
[2021-11-21] MEDS: LACOSAMIDE 50 MG TABLET PO SCH (09:32)
[2021-11-21] MEDS: clonazePAM 1 MG TAB PO SCH (09:32)
[2021-11-21] MEDS: PANTOPRAZOLE 40 MG TABLET PO SCH (09:32)
[2021-11-21] MEDS: PYRIDOXINE 50 MG TAB PO SCH (09:32)
[2021-11-21] MEDS: SERTRALINE 100 MG TAB PO SCH (09:33)
[2021-11-21] MEDS: PATIENT'S OWN (Dextroamphetamine/Amphetamine [Adderall Xr 30 Mg Capsule] 30 MG Cap.Er PO SCH (09:44)
[2021-11-21 13:05] VITALS: BP 150/89; PULSE 65; TEMP 98.7
--- NOTE | 2021-11-21 13:09 | P.PN ---
Progress Note - Text Progress Note Date: 11/21/21 Patient remains unchanged. He denies any significant abdominal pain. He has had some diarrhea. On exam vital signs are stable. Abdomen soft. No surgical intervention is planned. Patiently discharged home per medicine.
[2021-11-21] MEDS: carBAMazepine 300 MG CPMP.12HR PO SCH (13:15)
--- NOTE | 2021-11-21 14:44 | P.DS ---
Providers Date of admission: 11/18/21 22:03 Attending physician: Clem Nair MD Consults: 11/18/21 21:53 Consult Physician Routine Consulting Provider: Mendel Del Real Consult Reason/Comments: Chronic ileus, positive Hemoccult Do you want consulting provider notified?: Yes, Notify in am Primary care physician: [facility]: This is a 41-year-old black male who has extensive intra-abdominal surgery. He was seen at [facility] earlier this morning for nausea vomiting and diarrhea and was found to be volume depleted. He was discharged back to assisted living but as soon as he got there he was transferred to the emergency room at our facility. There was no reported fever. At the time of examination patient is not a very good historian but does not appear to be in distress. There was no reported fever. Assisted-living unable to take him tonight as they will have 24-hour supervision. Patient was also evaluated by general surgery. Patient does have a chronic abdominal pain with a history of chronic nausea and diarrhea. Patient underwent subtotal creatinine as a child computed tomography scan was reviewed by the service. Some dilated bowel bleeding down the rectum could be secondary to anastomosis. Patient is adequately passing gas and diarrhea. The patient was monitored overnight by surgical team as well as internal medicine. He denies any worsening abdominal discomfort he had a bowel movement without any complaints. Vital signs are stable. Patient's okay for discharge from general surgery's perspective and follow up outpatient with with him and PCP. Patient Condition at Discharge: Stable Plan - Discharge Summary New Discharge Prescriptions: Continue Albuterol Sulfate [Ventolin HFA] 2 puff INHALATION RT-QID PRN PRN Reason: Shortness Of Breath Levothyroxine Sodium [Synthroid] 50 mcg PO DAILY Baclofen [Lioresal] 20 mg PO TID Sertraline HCl [Zoloft] 150 mg PO DAILY Ondansetron [Zofran] 4 mg PO Q8H PRN PRN Reason: Nausea Docusate [Colace] 100 mg PO BID PRN PRN Reason: Constipation Polyethylene Glycol 3350 [Miralax] 17 gm PO DAILY PRN PRN Reason: Constipation Equetro 300mg 300 mg PO BID EPINEPHrine (Auto Inject) [Epipen] 0.3 mg IM ONCE PRN PRN Reason: Anaphylaxis Cyanocobalamin [Vitamin B-12 Injection] 1,000 mcg SQ Q30D Dextroamphetamine/Amphetamine [Adderall Xr 30 mg Capsule] 30 mg PO DAILY Pyridoxine HCl (Vitamin B6) [Vitamin B-6] 500 mg PO DAILY OXcarbazepine [Trileptal] 1,200 mg PO DAILY Lacosamide [Vimpat] 50 mg PO BID clonazePAM [KlonoPIN] 1 mg PO DAILY Omeprazole 20 mg PO BID Meclizine [Antivert] 25 mg PO Q8H PRN PRN Reason: DIZZINESS Discharge Medication List Albuterol Sulfate [Ventolin HFA] 2 puff INHALATION RT-QID PRN 07/21/21 [History] Baclofen [Lioresal] 20 mg PO TID 07/21/21 [History] Levothyroxine Sodium [Synthroid] 50 mcg PO DAILY 07/21/21 [History] Sertraline HCl [Zoloft] 150 mg PO DAILY 07/21/21 [History] clonazePAM [KlonoPIN] 1 mg PO DAILY 07/21/21 [History] Docusate [Colace] 100 mg PO BID PRN 10/05/21 [History] Equetro 300mg 300 mg PO BID 10/05/21 [History] Meclizine [Antivert] 25 mg PO Q8H PRN 10/05/21 [History] Omeprazole 20 mg PO BID 10/05/21 [History] Ondansetron [Zofran] 4 mg PO Q8H PRN 10/05/21 [History] Polyethylene Glycol 3350 [Miralax] 17 gm PO DAILY PRN 10/05/21 [History] Cyanocobalamin [Vitamin B-12 Injection] 1,000 mcg SQ Q30D 11/18/21 [History] Dextroamphetamine/Amphetamine [Adderall Xr 30 mg Capsule] 30 mg PO DAILY 11/18/21 [History] EPINEPHrine (Auto Inject) [Epipen] 0.3 mg IM ONCE PRN 11/18/21 [History] Pyridoxine HCl (Vitamin B6) [Vitamin B-6] 500 mg PO DAILY 11/18/21 [History] Lacosamide [Vimpat] 50 mg PO BID 11/20/21 [History] OXcarbazepine [Trileptal] 1,200 mg PO DAILY 11/20/21 [History] Follow up Appointment(s)/Referral(s): Bernardino Guillermo MD [Primary Care Provider] - 11/20/21 Mendel Del Real MD [STAFF PHYSICIAN] - 1 Week Patient Instructions/Handouts: Dehydration (ED), Acute Diarrhea (ED) Activity/Diet/Wound Care/Special Instructions: Follow-up with your regular physician as directed. Return to the ER immediately if any symptoms worsen, new symptoms arise, or any other problems develop. per the guardian Mary Carcamo we can send the pt home in a cab and bill the Cab to [place] [phone] [place] [phone] Discharge Disposition: TRANSFER TO SNF/ECF
[2021-12-08] MEDS ORDERED: CYANOCOBALAMIN 1,000 MCG/ML 1 ML VIAL SQ SCH (09:00)
== END 2021-11-21 16:48 | disposition home or self-care (01) ==
LOC: EC 16:32 → EEVIPCON 16:32 → 6NMEDSUR 22:03 → 5NMEDONC 22:40
PROVIDERS: ADMIT Internal Medicine; ATTEND Internal Medicine
DX: G89.29 Other chronic pain (principal); R10.9 Unspecified abdominal pain; R19.7 Diarrhea, unspecified; R11.2 Nausea with vomiting, unspecified; K63.89 Other specified diseases of intestine; G40.909 Epilepsy, unspecified, not intractable, without status epilepticus; R53.1 Weakness; G80.9 Cerebral palsy, unspecified; K21.9 Gastro-esophageal reflux disease without esophagitis; F84.0 Autistic disorder; E03.9 Hypothyroidism, unspecified; F32.A Depression, unspecified; F41.9 Anxiety disorder, unspecified; Z79.890 Hormone replacement therapy; Z79.899 Other long term (current) drug therapy; Z90.49 Acquired absence of other specified parts of digestive tract; Z71.9 Counseling, unspecified; Z88.0 Allergy status to penicillin; Z82.69 Family history of other diseases of the musculoskeletal system and connective tissue; Z82.0 Family history of epilepsy and other diseases of the nervous system; Z98.890 Other specified postprocedural states
CPT/HCPCS: 96361 ×4; 96374; 96375; 99285; 36415; 97116; 97162; 97166; 80053 ×2; 80183; 83690; 83735; 84100; 85025 ×2; 82272; 87324; 87045; 83630; 87046; 74022; 74177; G0378 ×5; J1200; J2765; Q9967